=== PATIENT | male | born 1960 | race Caucasian/White ===

== ENCOUNTER 2018-03-29 11:29 | Inpatient (IN) ==
[2018-03-29] MEDS ORDERED: fentaNYL Citrate Inj 100 MCG/2 ML Ampul IV.PUSH ONE ×2 (11:56→13:07)
[2018-03-29 12:09] LABS: Baso # (Auto) 0.1 th/mm3 (0.0-0.2); Baso % (Auto) 0.8 % (0.0-2.0); Eos # (Auto) 0.2 th/mm3 (0.0-0.4); Eos % (Auto) 1.9 % (0.0-4.0); Hematocrit 44.4 % (39.0-51.0); Hemoglobin 15.4 gm/dL (13.0-17.0); Lymph # (Auto) 1.9 th/mm3 (1.0-4.8); Lymph % (Auto) 24.1 % (9.0-44.0); Mean Corpuscular HGB Conc 34.8 % (32.0-36.0); Mean Corpuscular Hemoglobin 30.8 pg (27.0-34.0); Mean Corpuscular Volume 88.6 fL (80.0-100.0); Mean Platelet Volume 7.5 fL (7.0-11.0); Mono # (Auto) 0.5 th/mm3 (0.0-0.9); Mono % (Auto) 6.9 % (0.0-8.0); Neut # (Auto) 5.3 th/mm3 (1.8-7.7); Neut % (Auto) 66.3 % (16.0-70.0); Platelet Count 215 th/mm3 (150-450); Red Blood Count 5.01 mil/mm3 (4.50-5.90)
[2018-03-29 12:18] LABS: Activated Partial Thrombo Time 24.3 sec (24.3-30.1); Prothrombin Time 10.2 sec (9.8-11.6)
--- NOTE | 2018-03-29 12:56 | ED ---
HPI General Chief Complaint: Fall Stated Complaint: Fall Time Seen by Provider: 03/29/18 11:42 Source: patient, EMS and other Mode of arrival: EMS Limitations: language barrier History of Present Illness HPI Narrative: Patient is a previously healthy 57-year-old male who presents with complaint of headache and neck pain. He was on a ladder approximately 6 feet up when he slipped and fell backwards striking his head and neck. He denies pain elsewhere. He did have positive LOC. No vomiting since then. He denies any numbness nor weakness. He denies symptoms prior to the fall. He is not on blood thinners. Patient's friend acted as branding machine tender for much of the interaction that this is what the patient felt comfortable with (vs phone/video) . MD complaint: fall Onset (ago): minute(s) Fall from: from height (distance) Place fall occurred: work Loss of consciousness: yes Prolonged down time: no Symptoms prior to fall: none Context: tripped/slipped Location of injury: head and neck Related Data Home Medications Medication Instructions Recorded Confirmed No Known Home Medications 03/29/18 03/29/18 Allergies Allergy/AdvReac Type Severity Reaction Status Date / Time No Known Allergies Allergy Unverified 03/29/18 11:35 Review of Systems ROS: all other systems reviewed are negative [facility] Social History Social History Substance History: No History of Abuse Second Hand Smoke Exposure: No Smoking Status: Never smoker How Often Do You Have a Drink Containing Alcohol: Monthly or less Recent Travel in [facility] within the Last 8 Weeks: No Recent Out of Country Travel within the Last 8 Weeks: No Immunization History Tetanus Immunization: Unsure Hx Influenza Vaccine This Season: Unable to Assess Exam Narrative Exam Narrative: GENERAL: Well-appearing, stoic male in no acute distress SKIN: Focused skin assessment warm/dry. HEAD: Atraumatic. EYES: Pupils equal and round. No scleral icterus. No injection or drainage. ENT: No nasal bleeding or discharge. Mucous membranes pink and moist. NECK: Trachea midline. No JVD. CARDIOVASCULAR: Regular rate and rhythm. No murmur appreciated. RESPIRATORY: No accessory muscle use. Clear to auscultation. Breath sounds equal bilaterally. GASTROINTESTINAL: Abdomen soft, non-tender, nondistended. Hepatic and splenic margins not palpable. MUSCULOSKELETAL: No obvious deformities. No clubbing. No cyanosis. No edema. No tenderness on palpation during log roll. NEUROLOGICAL: Awake and alert. No obvious cranial nerve deficits. Able to move all 4 extremities. Denies changes in sensation. PSYCHIATRIC: Appropriate mood and affect; insight and judgment normal. Course Consultations Consultation #1: I spoke to Dr Hurt, trauma surgeon ship's electronic warfare officer, whom agreed to admission to the ICU. Time: 12:56 Consultation #2: I spoke to Dr Wagner, neurosurgeon on-call, whom agreed to the patient and asked that we order a CTA of his head. Time: 13:13 Initial Documented Vital Signs Temperature 98.6 F 03/29/18 11:42 Pulse Rate 104 H 03/29/18 11:42 Respiratory Rate 27 H 03/29/18 11:42 Blood Pressure 145/76 H 03/29/18 11:42 Pulse Oximetry 95 03/29/18 11:42 Last Documented Vital Signs Temperature 98.6 F 03/29/18 11:42 Pulse Rate 104 H 03/29/18 11:42 Respiratory Rate 27 H 03/29/18 11:42 Blood Pressure 145/76 H 03/29/18 11:42 Pulse Oximetry 98 03/29/18 12:06 Critical Care Time Critical Care Time: Yes Total Critical Care Time: 35 Attestation: Aggregate critical care time was 35 minutes. Time to perform other separately billable procedures was not included in the critical care time. My time did not include minutes spent treating any other patients simultaneously or on activities that did not directly contribute to the patient's treatment. The services I provided to this patient were to treat and/or prevent clinically significant deterioration that could result in: , disability. I provided critical care services requiring my management, as noted below: Chart data review, documentation time, medication orders and management, vital sign assessments/reviewing monitor data, ordering and reviewing lab tests, ordering and interpreting/reviewing x-rays and diagnostic studies, care of the patient and discussion of the patient with the admitting physicians. Medical Decision Making MDM Narrative Medical decision making narrative: Patient is a 57-year-old male who presents after a fall from a ladder in which he hit his head and neck. He denies pain elsewhere and did not have any pain on palpation during logroll. CT shows intracranial hemorrhage at which time both trauma surgery and neurosurgery were called. Dr. Hurt, trauma surgeon on-call agreed to admission. Medical Screen Exam Complete: Yes Emergency Medical Condition: Yes Differential Diagnosis Differential Diagnosis: Differential diagnosis includes but is not limited to closed head injury, intracranial hemorrhage, fracture. Medical Records Medical records reviewed: Yes I reviewed the patient's medical records. Lab Data Result diagrams: 03/29/18 11:47 03/29/18 11:47 Lab Results 03/29/18 03/29/18 03/29/18 Range/Units 11:47 11:47 11:47 WBC 8.0 (4.0-11.0) th/mm3 RBC 5.01 (4.50-5.90) mil/mm3 Hgb 15.4 (13.0-17.0) gm/dL Hct 44.4 (39.0-51.0) % MCV 88.6 (80.0-100.0) fL MCH 30.8 (27.0-34.0) pg MCHC 34.8 (32.0-36.0) % RDW 13.0 (11.6-17.2) % Plt Count 215 (150-450) th/mm3 MPV 7.5 (7.0-11.0) fL Neut % (Auto) 66.3 (16.0-70.0) % Lymph % (Auto) 24.1 (9.0-44.0) % Coles % (Auto) 6.9 (0.0-8.0) % Eos % (Auto) 1.9 (0.0-4.0) % Baso % (Auto) 0.8 (0.0-2.0) % Neut # (Auto) 5.3 (1.8-7.7) th/mm3 Lymph # (Auto) 1.9 (1.0-4.8) th/mm3 Coles # (Auto) 0.5 (0.0-0.9) th/mm3 Eos # (Auto) 0.2 (0.0-0.4) th/mm3 Baso # (Auto) 0.1 (0.0-0.2) th/mm3 WBC Differential . Differential Comment Auto diff final PT 10.2 (9.8-11.6) sec INR 1.0 Ratio APTT 24.3 (24.3-30.1) sec Sodium 141 (136-145) meq/L Potassium 3.7 (3.5-5.1) meq/L Chloride 105 (98-107) meq/L Carbon Dioxide 27.2 (21.0-32.0) meq/L Anion Gap 9 (5-15) meq/L BUN 16 (7-18) mg/dL Creatinine 1.04 (0.60-1.30) mg/dL Estimated GFR 74 L (>89) mL/min Random Glucose 126 H (74-106) mg/dL Calcium 8.6 (8.5-10.1) mg/dL Blood Type Blood Type Recheck Antibody Screen 03/29/18 Range/Units 11:47 WBC (4.0-11.0) th/mm3 RBC (4.50-5.90) mil/mm3 Hgb (13.0-17.0) gm/dL Hct (39.0-51.0) % MCV (80.0-100.0) fL MCH (27.0-34.0) pg MCHC (32.0-36.0) % RDW (11.6-17.2) % Plt Count (150-450) th/mm3 MPV (7.0-11.0) fL Neut % (Auto) (16.0-70.0) % Lymph % (Auto) (9.0-44.0) % Coles % (Auto) (0.0-8.0) % Eos % (Auto) (0.0-4.0) % Baso % (Auto) (0.0-2.0) % Neut # (Auto) (1.8-7.7) th/mm3 Lymph # (Auto) (1.0-4.8) th/mm3 Coles # (Auto) (0.0-0.9) th/mm3 Eos # (Auto) (0.0-0.4) th/mm3 Baso # (Auto) (0.0-0.2) th/mm3 WBC Differential Differential Comment PT (9.8-11.6) sec INR Ratio APTT (24.3-30.1) sec Sodium (136-145) meq/L Potassium (3.5-5.1) meq/L Chloride (98-107) meq/L Carbon Dioxide (21.0-32.0) meq/L Anion Gap (5-15) meq/L BUN (7-18) mg/dL Creatinine (0.60-1.30) mg/dL Estimated GFR (>89) mL/min Random Glucose (74-106) mg/dL Calcium (8.5-10.1) mg/dL Blood Type AB Negative Blood Type Recheck Required Antibody Screen Negative Imaging Data Attestation: I personally reviewed and interpreted this imaging study as follows : My impression: Intracranial hemorrhage. Radiologist's impression: Head CT 03/29/18 11:42 CONCLUSION: 1. Extensive intraparenchymal and extra-axial hemorrhage as described in detail above. 2. Nondisplaced skull fracture through the frontal bone. Discharge Plan Discharge Disposition Patient Disposition: 30 Still Patient Discharge Condition Condition: Serious Discharge Details Diagnosis: Intracranial hemorrhage Physicians Team ED Provider: Margot Leger Primary Care Provider: Primary Care Tiffany Sexton Attending Provider: Vincent Hurt Discharge Interventions Interventions: Vital Signs Last Done: 03/29/18 11:42 Status ED Status: Admitted Patient
[2018-03-29 13:07] LABS: Calcium 8.6 mg/dL (8.5-10.1); Carbon Dioxide 27.2 meq/L (21.0-32.0); Potassium 3.7 meq/L (3.5-5.1)
--- NOTE | 2018-03-29 13:10 | CT ---
EXAM DATE: 03/29/2018 1:03 PM EDT AGE/SEX: 57 years / Male INDICATIONS: Fall from ladder CLINICAL DATA: This is the patient's initial encounter. Patient reports that signs and symptoms have been present for 1 day and indicates a pain score of 6/10. MEDICAL/SURGICAL HISTORY: None. None. RADIATION DOSE: 66.35 CTDI (mGy) COMPARISON: No prior exams available for comparison. TECHNIQUE: CT of the head without contrast. Using automated exposure control and adjustment of the mA and/or kV according to patient size, radiation dose was kept as low as reasonably achievable to ob tain optimal diagnostic quality images. DICOM format image data is available electronically for revi ew and comparison. FINDINGS: The examination demonstrates extensive posttraumatic subarachnoid hemorrhage layering along the sylvi an fissure and within the middle cranial fossa. There is intraparenchymal hemorrhage evident within t he orbital frontal portion of the frontal lobes bilaterally. In addition, there is a small area of gee bdural hemorrhage seen along the anterior aspect of the left temporal lobe. This measures 8 mm in thi ckness. The ventricular system is normal in size and configuration. There is no evidence of downward herniati on. Examination of the posterior fossa demonstrates a small amount of hemorrhage pooling in the interpedu ncular fossa and extending down along the anterior aspect of the zachary. Bone windowed images demonstrate a skull fracture extending along the midline this begins along the s agittal suture and extends anteriorly throughout the frontal bone and exits through the frontal sinus . There is extensive soft tissue swelling along the 4 head. CONCLUSION: 1. Extensive intraparenchymal and extra-axial hemorrhage as described in detail above. 2. Nondisplaced skull fracture through the frontal bone. Electronically signed by: Casa Escobar MD 03/29/2018 1:08 PM EDT
--- NOTE | 2018-03-29 13:15 | CT ---
EXAM DATE: 03/29/2018 1:07 PM EDT AGE/SEX: 57 years / Male INDICATIONS: Trauma, fall from ladder. CLINICAL DATA: This is the patient's initial encounter. Patient reports that signs and symptoms have been present for 1 day and indicates a pain score of 10/10. MEDICAL/SURGICAL HISTORY: None. None. RADIATION DOSE: 20.33 CTDI (mGy) COMPARISON: [facility], CTA NECK W CONTRAST W 3D, 03/29/2018. . TECHNIQUE: Contiguous axial images were obtained using helical multirow detector technique. The vol umetric data was post-processed with multiplanar reconstruction in oblique axial, sagittal, and coron al planes. Using automated exposure control and adjustment of the mA and/or kV according to patient s ize, radiation dose was kept as low as reasonably achievable to obtain optimal diagnostic quality jeovany ges. DICOM format image data is available electronically for review and comparison. FINDINGS: Vertebrae: Normal vertebral body height. Alignment: Normal. No subluxation. C2-3: The bony spinal canal is normal in size. No evidence of disc bulge or herniation. The neural foramina are bilaterally patent. C3-4: The bony spinal canal is normal in size. No evidence of disc bulge or herniation. The neural foramina are bilaterally patent. C4-5: The bony spinal canal is normal in size. No evidence of disc bulge or herniation. The neural foramina are bilaterally patent. C5-6: Mild disc space narrowing with mild broad-based disc osteophyte complex. No central canal sten osis. Neural foramina are patent bilaterally. C6-7: Mild disc space narrowing with mild broad-based disc osteophyte complex. No central canal sten osis. Neural foramina are patent bilaterally. C7-T1: The bony spinal canal is normal in size. No evidence of disc bulge or herniation. The neura l foramina are bilaterally patent. CONCLUSION: 1. No fracture or dislocation. 2. Mild degenerative disc disease. Electronically signed by: Raoul Sampson MD 03/29/2018 1:13 PM EDT
--- NOTE | 2018-03-29 13:25 | CT ---
EXAM DATE: 03/29/2018 1:20 PM EDT AGE/SEX: 57 years / Male INDICATIONS: Trauma, fall from ladder. CLINICAL DATA: This is the patient's initial encounter. Patient reports that signs and symptoms have been present for 1 day and indicates a pain score of 9/10. MEDICAL/SURGICAL HISTORY: None. None. RADIATION DOSE: 10.66 CTDI (mGy) COMPARISON: [facility] [place], CT CERVICAL SPINE W/O CONTRAST, 03/29/2018. . TECHNIQUE: Volumetric scanning was performed using a multirow detector CT scanner during bolus infus ion of 71 ml Omnipaque 350 (iohexol) nonionic water-soluble contrast as a single exam dose. The da ta was postprocessed with a variety of visualization algorithms including full-volume maximum intensi ty projection, multiplanar sliding thin-slab reformation, curved-planar reformation, and surface-rend ering techniques. Using automated exposure control and adjustment of the mA and/or kV according to p atient size, radiation dose was kept as low as reasonably achievable to obtain optimal diagnostic jessica lity images. DICOM format image data is available electronically for review and comparison. Percent stenosis is calculated using the diameter of the stenotic region over the diameter of the nor mal distal internal carotid artery. FINDINGS: Aortic Arch: Truncus arch anatomy. Widely patent arch vessels. Right Carotid: The common carotid artery is intact. The carotid bulb has a normal configuration wit hout ulceration or narrowing. The internal carotid artery lumen is smooth without stenosis. The ext ernal carotid artery is intact. Left Carotid: The common carotid artery is intact. The carotid bulb has a normal configuration with out ulceration or narrowing. The internal carotid artery lumen is smooth without stenosis. The exte rnal carotid artery is intact. Vertebrals: The vertebral arteries are patent bilaterally, left side dominant.. No stenotic lesions are seen. CONCLUSION: Negative CTA Carotid. Electronically signed by: Emory Trejo MD 03/29/2018 1:24 PM EDT
[2018-03-29] MEDS ORDERED: Morphine Inj 4 MG/ML Vial IV.PUSH ONE (14:10)
--- NOTE | 2018-03-29 14:29 | CT ---
EXAM DATE: 03/29/2018 2:23 PM EDT AGE/SEX: 57 years / Male INDICATIONS: Trauma, fall from ladder. CLINICAL DATA: This is the patient's initial encounter. Patient reports that signs and symptoms have been present for 1 day and indicates a pain score of 6/10. MEDICAL/SURGICAL HISTORY: None. None. RADIATION DOSE: 10.66 CTDI (mGy) ; Combined studies COMPARISON: [facility] [place], CT HEAD W/O CONTRAST, 03/29/2018. . TECHNIQUE: Volumetric scanning was performed using a multi-row detector CT scanner during bolus infu chloe of 75 ml Omnipaque 350 (iohexol) nonionic water-soluble contrast as a cumulative dose for multi ple exams. The data was post processed with a variety of visualization algorithms including full vo lume maximum intensity projection, multi-planar sliding thin slab reformation, curved planar reformat ion, and surface rendering techniques. Using automated exposure control and adjustment of the mA and /or kV according to patient size, radiation dose was kept as low as reasonably achievable to obtain o ptimal diagnostic quality images. DICOM format image data is available electronically for review and comparison. FINDINGS: The study was generated retrospectively from the patient's CTA Carotid exam. The [place] ves sels are well seen proximally. The distal territories are not fully covered. The [place] vessels are intact and unremarkable with no evidence of major vessel occlusion o r stenosis and no evidence of aneurysm. No findings to suggest vascular malformation. There is hemorr ana again noted in the frontal and left temporal regions as well as in the paramesencephalic cistern s. CONCLUSION: No acute [place] vascular abnormalities. Electronically signed by: Emory Trejo MD 03/29/2018 2:28 PM EDT
[2018-03-29] MEDS ORDERED: Naloxone Inj 0.4 MG/ML Vial IV.PUSH PRN (16:11)
[2018-03-29] MEDS ORDERED: Post-op Orders (for Pharmacy) OTHER ONE (16:11)
[2018-03-29] MEDS ORDERED: Bisacodyl 10 MG Supp RECTAL PRN (16:11)
--- NOTE | 2018-03-29 16:54 | MH ---
cc: Vincent Hurt MD DATE OF ADMISSION: 03/29/2018 ADMITTING DIAGNOSES: Intracranial hemorrhage, fall. HISTORY OF PRESENT ILLNESS: This is a 57-year-old male who fell of a 6 feet ladder backwards, hit the head. He lost consciousness for a short period of time, apparently did not have any problems since. He denies numbness, weakness or any other symptoms other than headache. He remembers the accident. PAST MEDICAL HISTORY: Negative. PAST SURGICAL HISTORY: Negative. MEDICATIONS: None. ALLERGIES: NONE. SOCIAL HISTORY: The patient never smoked and drinks socially. PHYSICAL EXAMINATION: GENERAL: Reveals a 57-year-old male. HEENT: Normocephalic. No episodic trauma to the head noted, some bruising over the right forehead, the right parietal area. Pupils are equal and reactive. Extraocular muscles intact. No hemotympanum. No ortega sign and no raccoon's eyes. NECK: Bilateral carotid pulses. No bruits. No trauma to the neck. CHEST: Bilateral breath sounds. HEART: Regular rate and rhythm, hemodynamically stable. No signs of trauma to the chest. ABDOMEN: Soft. Good bowel sounds. No signs of trauma to the abdomen. EXTREMITIES: Bilateral femoral, popliteal, dorsalis pedis and posterior tibial pulses, bilateral brachial, ulnar, radial pulses. Some bruising noted over the right elbow. PROTOCOL RESUSCITATION; The patient was brought at the regular ER underwent radiation and was noted on CT scan to have the above noted findings. Neurologically the patient is fully intact. He is awake, alert and oriented. Cranial nerves 2-12 are normal. Motor is fully intact and sensory is intact. WORKUP: Reveals a right frontal skull fracture and bilateral frontal and right temporoparietal intraparenchymal bleed and small subarachnoid and subdural bleed on the left. This is fairly extensive on the CT scan and patient is way more alert and oriented than the CT scan would indicate. At this point the patient will be admitted to the ICU per clinical indices. CRITICAL CARE TIME: 38 minutes. MD RODRÍGUEZ Truong/gui/liyah , 04:11 PM , 04:19 PM
[2018-03-29] MEDS: Sod Chloride 0.9% Inj 1,000 ML IV.CONT SCH (16:59)
--- NOTE | 2018-03-29 17:45 | P.CONNS ---
History of Present Illness Service: Neurosurgery Consult date: 03/29/18 Requesting Physician: Vincent Hurt (Trauma surgery) Reason for Consult: Traumatic brain injury Primary Care Provider: No Primary Care Physician History of Present Illness: 57-year-old [place] gentleman who was working and fell off a ladder about 6 feet in height and struck his head in the occipital area with positive loss of consciousness after the fall. Is brought to [facility] emergency room and workup undertaken including CT scan of the head which reveals frontal nondisplaced skull fracture along with the bifrontal contusions in left temporal lobe hemorrhage with a small subdural hemorrhage and subarachnoid hemorrhage in the left the sylvian fissure extending into the ambient cistern and pre-pontine area. CT angiogram of the brain does not reveal any underlying cerebral aneurysm spine does not reveal any fracture. Main complaint is headache with some nausea but denies any other symptoms. Review of Systems Constitutional: Denies anorexia, Denies body ache(s), Denies chills, Denies daytime sleepiness, Denies excessive sweating, Denies fatigue, Denies fever(s), Denies headache(s), Denies increased appetite, Denies lack of energy, Denies malaise, Denies night sweats, Denies weakness, Denies weight gain, Denies weight loss, Denies other Eyes: Denies blind spots, Denies blurry vision, Denies bulging eyes, Denies change in vision, Denies double vision, Denies discharge, Denies dry eyes, Denies floaters, Denies irritation, Denies itchy eyes, Denies loss of vision, Denies pain, Denies requires corrective lenses, Denies sensitivity to light, Denies other Ears, Nose, Mouth, and Throat: Denies abnormal hearing, Denies bleeding gums, Denies bad breath, Denies change in voice, Denies dental pain, Denies difficulty swallowing, Denies dizziness, Denies dry mouth, Denies ear discharge , Denies ear pain, Denies facial pain, Denies headache(s), Denies hearing loss, Denies hoarseness, Denies lip swelling, Denies nosebleed, Denies mouth lesions, Denies mouth pain, Denies nasal congestion, Denies nasal discharge, Denies nasal obstruction, Denies nasal trauma, Denies neck lump, Denies neck pain, Denies nose pain, Denies pain with swallowing, Denies poor balance, Denies post nasal drip, Denies ringing in the ears, Denies sinus pain, Denies sinus pressure , Denies sore throat, Denies throat swelling, Denies tongue swelling, Denies other Cardiovascular: Denies chest pain, Denies chest pain at rest, Denies chest pain with activity, Denies excessive sweating, Denies fainting, Denies fast heart rate, Denies foot swelling, Denies generalized swelling, Denies irregular heart rhythm, Denies leg pain with activity, Denies leg sores, Denies leg swelling, Denies lightheadedness, Denies radiating jaw, neck or arm pain, Denies rapid, pounding, or irregular heartbeat, Denies shortness of breath, Denies shortness of breath with activity, Denies shortness of breath when lying down, Denies shortness of breath causing sudden awakening, Denies slow heart rate, Denies other Respiratory: Denies change in phlegm color, Denies chest congestion, Denies cough, Denies coughing up blood, Denies excessive phlegm production, Denies pain on inspiration, Denies pain with cough, Denies shortness of breath, Denies shortness of breath with activity, Denies snoring, Denies stridor, Denies wheezing, Denies other Gastrointestinal: Reports nausea, Denies abdominal pain, Denies belching, Denies black, tarry stools, Denies bloating, Denies bright, red blood in stools , Denies change in bowel habits, Denies constant urge to pass stool, Denies change in stools, Denies coffee ground vomit, Denies constipation, Denies cramping, Denies difficulty swallowing, Denies excessive passing of gas, Denies feeling full early, Denies heartburn, Denies incontinent of stools, Denies loose stools, Denies pain with swallowing, Denies vomiting, Denies vomiting blood, Denies other Genitourinary: Denies blood in semen, Denies blood in urine, Denies decreased urination, Denies difficulty urinating, Denies difficulty with ejaculations, Denies erectile dysfunction, Denies genital lesions, Denies genital pain, Denies painful urination, Denies side pain, Denies frequent nighttime urination , Denies painful ejaculations, Denies penile discharge, Denies scrotal swelling , Denies testicle lump, Denies testicle pain, Denies urinary frequency, Denies urinary hesitancy, Denies urinary incontinence, Denies urinary urgency, Denies other Skin/Breast: Denies acne, Denies bleeding lesions, Denies boil, Denies breast swelling, Denies breast skin changes, Denies breast pain, Denies breast lump, Denies change in breast shape, Denies change in hair, Denies change in skin color, Denies changing lesions, Denies dry skin, Denies excessive hair growth, Denies hair loss, Denies itching, Denies lesions, Denies nail changes, Denies new lesions, Denies nipple discharge, Denies non-healing lesions, Denies redness , Denies sensitivity to light, Denies rash, Denies skin pain, Denies skin ulcer , Denies sores, Denies stretch gross, Denies unusual bruising, Denies wounds, Denies yellowing of the skin, Denies other Neurologic: Reports headache(s), Denies abnormal hearing, Denies abnormal movements, Denies abnormal speech, Denies abnormal walking, Denies behavioral changes, Denies burning sensations, Denies confusion, Denies dizziness, Denies fainting, Denies frequent falls, Denies lack of coordination, Denies localized weakness, Denies loss of vision, Denies memory loss, Denies numbness, Denies other visual disturbances, Denies radiating pain, Denies restless legs, Denies convulsions, Denies seizure-like activity, Denies sensory deficit, Denies tingling, Denies tingling/numbness/burning sensations, Denies tremor(s), Denies unsteadiness, Denies weakness, Denies other Psychiatric: Denies abnormal sleep pattern, Denies anxiety, Denies behavioral changes, Denies change in appetite, Denies change in sex drive, Denies confusion , Denies depression, Denies difficulty concentrating, Denies hearing things others do not hear, Denies hopelessness, Denies irritability, Denies lack of enjoyment, Denies memory loss, Denies mood swings, Denies panic attacks, Denies paranoia, Denies seeing things others do not see, Denies sensing things others do not sense, Denies tactile hallucinations, Denies thoughts of hurting/killing others, Denies thoughts of hurting/killing yourself, Denies other Endocrine: Denies cold intolerance, Denies excessive sweating, Denies flushing, Denies heat intolerance, Denies increased hunger, Denies increased thirst, Denies increased urination, Denies rapid, pounding, or irregular heartbeat, Denies other Hematologic/Lymphatic: Denies easy bleeding, Denies easy bruising, Denies enlarged lymph nodes, Denies other Allergic/Immunologic: Denies GI upset with certain foods, Denies hives, Denies itchy eyes, Denies lip swelling, Denies seasonal runny nose, Denies throat swelling, Denies tongue swelling, Denies wheezing, Denies other PMFSH - History History Provided By: Family Member, Significant Other - Tobacco History Second Hand Smoke Exposure: No Tobacco Use In Past 30 Days: No Smoking Status: Former smoker Tobacco Type: Cigarettes - Alcohol History How Often Do You Have a Drink Containing Alcohol: Monthly or less - Substance Use History Substance History: No History of Abuse - Travel History Recent Travel in the [facility] Within the Last 8 Weeks: No Recent Travel Out of the Country Within the Last 8 Weeks: No - Immunization History Tetanus Immunization: <5 Years Hx Influenza Vaccine This Season: No Medications and Allergies Active Medications: Active Medications Al Hydroxide/Mg Hydroxide (Milk Of Magnesia Liq) 30 ml PO Q12H PRN PRN Reason: Mild Constipation Bisacodyl (Dulcolax Supp) 10 mg RECTAL DAILY PRN PRN Reason: SEVERE CONSITIPATION Sodium Chloride (Ns Inj) 1,000 mls @ 100 mls/hr IV.CONT .Q10H [facility] Last Admin: 03/29/18 16:59 Dose: 100 mls/hr Levetiracetam 500 mg/ Sodium (Chloride) 105 mls @ 400 mls/hr IV.SIG Q12H [facility] Last Admin: 03/29/18 16:57 Dose: 400 mls/hr Lactulose (Lactulose Liq) 30 ml PO DAILY PRN PRN Reason: SEVERE CONSITIPATION Morphine Sulfate (Morphine Inj) 4 mg IV.PUSH Q3H PRN PRN Reason: PAIN 6-10;IF UNABLE TO TAKE PO Naloxone HCl (Narcan Inj) 0.4 mg IV.PUSH UNSCH PRN PRN Reason: SEE LABEL COMMENTS Ondansetron HCl (Zofran Inj) 4 mg IV.PUSH Q6H PRN PRN Reason: NAUSEA OR VOMITING Oxycodone/Acetaminophen (Percocet 5/325 Mg) 1 tab PO Q6H PRN PRN Reason: PAIN SCALE 3 TO 5 Last Admin: 03/29/18 16:58 Dose: 1 tab Pantoprazole Sodium (Protonix) 40 mg PO DAILY [facility] Last Admin: 03/29/18 16:58 Dose: 40 mg Senna/Docusate Sodium (Audelia-Colace) 1 tab PO BID [facility] Sennosides (Senokot) 17.2 mg PO Q12H PRN PRN Reason: Moderate Constipation Sodium Chloride (Ns Flush) 2 ml IV.FLUSH PRN PRN PRN Reason: FLUSH AFTER USING IV ACCESS Allergies Allergy/AdvReac Type Severity Reaction Status Date / Time No Known Allergies Allergy Unverified 03/29/18 11:35 Home Medications Medication Instructions Recorded Confirmed Type No Known Home Medications 03/29/18 03/29/18 History Exam Vital signs: Vital Signs 03/29/18 11:42 03/29/18 12:06 03/29/18 14:09 Temperature 98.6 F Pulse Rate 104 H 112 H Respiratory Rate 27 H 24 Blood Pressure 145/76 H 123/73 Pulse Oximetry 95 98 98 Intake & Output 03/28/18 03/29/18 03/29/18 18:59 06:59 18:59 Intake Total 1000 / 1000 Balance 1000 / 1000 Weight 81.647 kg Intake: IV 1000 / 1000 LR 1000 mL Inj 1,000 ML @ 1000 1000 / 1000 mls/hr IV.CONT .Q1H [facility] Rx#: [id number] - Constitutional no acute distress - Routine HEENT Exam Head: Present: normocephalic, abrasion Eye: Present: EOMI, PERRL ENT: Present: mucous membranes moist, oropharynx clear, nares patent, external ear normal - Routine Neck Exam Present: supple, full ROM - Routine Respiratory Exam Present: CTA bilaterally - Routine Cardiovascular Exam Present: RRR, S1, S2 - Routine Abdominal Exam Present: soft, normoactive bowel sounds - Routine Extremities Exam Present: full ROM, pulses intact - Routine Skin Exam Present: intact - Routine Neurological Exam Present: oriented X3, CN II-XII intact, moving all extremities, normal speech ( Speaks [place] but daughter at bedside translates) Results - Laboratory Findings CBC and BMP: 03/29/18 11:47 03/29/18 11:47 Abnormal lab findings: Abnormal Labs 03/29/18 11:47 Estimated GFR 74 L Random Glucose 126 H - Diagnostic Findings Additional findings: Impressions Cervical Spine CT 03/29/18 11:42 CONCLUSION: 1. No fracture or dislocation. 2. Mild degenerative disc disease. Head CT 03/29/18 11:42 CONCLUSION: 1. Extensive intraparenchymal and extra-axial hemorrhage as described in detail above. 2. Nondisplaced skull fracture through the frontal bone. Neck CTA 03/29/18 11:42 CONCLUSION: Negative CTA Carotid. Head CTA 03/29/18 13:11 CONCLUSION: No acute [place] vascular abnormalities. Assessment and Plan - Assessment (1) Traumatic brain injury with brief (less than 1 hour) loss of consciousness Code(s): S06.9X9A - Unspecified intracranial injury with loss of consciousness of unspecified duration, initial encounter Status: Acute (2) Intracranial hemorrhage Code(s): I62.9 - Nontraumatic intracranial hemorrhage, unspecified Status: Acute - Plan 57-year-old gentleman with a traumatic brain injury involving bifrontal lobe contusions in left temporal lobe hemorrhage along with subarachnoid hemorrhage and frontal nondisplaced skull fracture after a fall from a ladder. Monitor closely in the surgical intensive care unit. Keep head of bed elevated 30. Early seizure prophylaxis with Keppra. Gastrointestinal stress ulcer and mechanical DVT prophylaxis. Follow-up CT scan of the head tomorrow morning to rule out any progression of the intracranial hemorrhage. Discussed with family and all of their questions answered. Discussed with nursing staff.
[2018-03-29] MEDS: Morphine Inj 4 MG/ML Vial IV.PUSH PRN (20:04)
--- NOTE | 2018-03-29 21:51 | P.PNCC ---
Subjective Brief History: 57-year-old male who fell about 6 foot ladder and landed on his back hit his head. There was loss of consciousness and by the time EMS came patient was awake and alert complaining about headache. The patient was brought at the regular ER underwent workup and was noted on CT scan to have the above noted findings. Neurologically the patient is fully intact. He is awake, alert and oriented. Cranial nerves 2-12 are normal. Motor is fully intact and sensory is intact. Reveals a right frontal skull fracture and very extensive bilateral frontal and right temporoparietal intraparenchymal bleeding and subarachnoid and subdural bleed on the left. This is fairly extensive on the CT scan and patient is way more alert and oriented than the CT scan would indicate. At this point the patient will be admitted to the ICU per clinical indices. I have discussed the care with family and also spoken to family member who is a neurosurgeon in [place] and worked also in [facility] who completely understood the situation. This patient will likely get worse before he gets better and there is significant chance that swelling will increase to the point that patients neurologic status will deteriorate and he will require ventilation Objective Vital Signs / I&O: Vital Signs 03/29/18 11:42 03/29/18 12:06 03/29/18 14:09 Temperature 98.6 F Pulse Rate 104 H 112 H Respiratory Rate 27 H 24 Blood Pressure 145/76 H 123/73 Pulse Oximetry 95 98 98 03/29/18 16:00 03/29/18 20:00 03/29/18 20:06 Temperature 97.8 F 98.7 F Pulse Rate 103 H 102 H Respiratory Rate 21 17 17 Blood Pressure 123/69 124/67 Pulse Oximetry 92 L 99 Intake & Output 03/29/18 03/29/18 03/30/18 06:59 18:59 06:59 Intake Total 1120 / 1120 105 / 105 Output Total 750 / 750 Balance 370 / 370 105 / 105 Weight 81.647 kg Intake: IV 1000 / 1000 105 / 105 LR 1000 mL Inj 1,000 ML @ 1000 1000 / 1000 mls/hr IV.CONT .Q1H [facility] Rx#: [id number] Keppra Inj 500 MG In NS Inj 100 105 / 105 ML @ 400 mls/hr IV.SIG Q12H [facility] Rx#:[id number] Oral 120 / 120 Output: Urine 750 / 750 Result Diagrams: 03/29/18 11:47 03/29/18 11:47 Imaging: Impressions Cervical Spine CT 03/29/18 11:42 CONCLUSION: 1. No fracture or dislocation. 2. Mild degenerative disc disease. Head CT 03/29/18 11:42 CONCLUSION: 1. Extensive intraparenchymal and extra-axial hemorrhage as described in detail above. 2. Nondisplaced skull fracture through the frontal bone. Neck CTA 03/29/18 11:42 CONCLUSION: Negative CTA Carotid. Head CTA 03/29/18 13:11 CONCLUSION: No acute [place] vascular abnormalities. Disinhibition Score: 14.00 Aggression Score: 14.00 Lability Score: 14.00 Agitated Behavior Total Score: 14
[2018-03-29] MEDS: Senna/Docusate Sodium 8.6/50 MG Tablet PO SCH (23:05)
[2018-03-30] MEDS: Sod Chloride 0.9% Inj 1,000 ML IV.CONT SCH ×2 (03:18→13:34)
[2018-03-30] MEDS: Morphine Inj 4 MG/ML Vial IV.PUSH PRN ×2 (03:19→21:36)
--- NOTE | 2018-03-30 05:10 | CT ---
EXAM DATE: 03/30/2018 4:22 AM EDT AGE/SEX: 57 years / Male INDICATIONS: Trauma; fall off ladder one day ago. CLINICAL DATA: This is the patient's initial encounter. Patient reports that signs and symptoms have been present for 1 day and indicates a pain score of Nonresponsive. MEDICAL/SURGICAL HISTORY: None. None. RADIATION DOSE: 56.35 CTDI (mGy) COMPARISON: [facility] [place], CT HEAD W/O CONTRAST, 03/29/2018. . TECHNIQUE: CT of the head without contrast. Using automated exposure control and adjustment of the mA and/or kV according to patient size, radiation dose was kept as low as reasonably achievable to ob tain optimal diagnostic quality images. DICOM format image data is available electronically for revi ew and comparison. FINDINGS: Redemonstration of extensive subarachnoid hemorrhage in the frontal mid to high convexities and left middle cranial fossa. Interval evolution of bilateral frontal lobe intraparenchymal hemorrhage. Stabl e 9 mm subdural hematoma in the left anterior temporal lobe. Blood products extend posteriorly to the interpedicular fossa and extending anterior to the zachary. Ventricles are midline and stable in size w ithout evidence for intraventricular hemorrhage. Basilar cisterns are intact. Brainstem and cerebellu m are intact. Redemonstration of anterior midline frontal skull fracture and soft tissue hematoma alessia ng the vertex. CONCLUSION: 1. Evolving extensive subarachnoid hemorrhage, bifrontal intraparenchymal hemorrhage and left tempor al subdural hemorrhage as described above. 2. No hydrocephalus or midline shift. 3. Redemonstration of nondisplaced skull fracture. . Electronically signed by: Gatito Goodman MD 03/30/2018 5:09 AM EDT
[2018-03-30 05:23] LABS: Baso % (Auto) 0.1 % (0.0-2.0); Hematocrit 39.4 % (39.0-51.0); Hemoglobin 13.8 gm/dL (13.0-17.0); Lymph # (Auto) 0.9 th/mm3 (1.0-4.8); Lymph % (Auto) 7.2 % (9.0-44.0); Mean Corpuscular HGB Conc 34.9 % (32.0-36.0); Mean Corpuscular Hemoglobin 30.9 pg (27.0-34.0); Mean Corpuscular Volume 88.4 fL (80.0-100.0); Mean Platelet Volume 7.5 fL (7.0-11.0); Mono # (Auto) 0.9 th/mm3 (0.0-0.9); Mono % (Auto) 7.4 % (0.0-8.0); Neut # (Auto) 10.6 th/mm3 (1.8-7.7); Neut % (Auto) 85.3 % (16.0-70.0); Platelet Count 186 th/mm3 (150-450); Red Blood Count 4.46 mil/mm3 (4.50-5.90); White Blood Count 12.4 th/mm3 (4.0-11.0)
[2018-03-30 05:45] LABS: Anion Gap 8 meq/L (5-15); Blood Urea Nitrogen 10 mg/dL (7-18); Calcium 8.2 mg/dL (8.5-10.1); Carbon Dioxide 24.9 meq/L (21.0-32.0); Chloride 105 meq/L (98-107); Glomerular Filtration Rate Greater Than 89 mL/min (>89); Glucose,Random 109 mg/dL (74-106); Potassium 3.7 meq/L (3.5-5.1); Sodium 138 meq/L (136-145)
--- NOTE | 2018-03-30 08:23 | P.NPEVAL ---
Patient History - Record/History Review Reason for Referral: The patient is a 57 year old unkown handed male status post traumatic brain injury secondary to a fall on 03/29/2018. Patient fell from a ladder with positive LOC. Head CT showed right frontal skull fracture and bilateral frontal and right temporoparietal intraparenchymal bleed with SAH and SDH on the left. Please note that this patient speaks [place], and communication is assisted by daughter who is bilingual. He is referred for baseline neurobehavioral status examination per trauma protocol to assess cognitive, behavioral and emotional aspects of the injury and to provide treatment recommendations. PMF - History History Provided By: Family Member, Significant Other - Medical History Medical History: Medical History (Last Updated 03/29/18 @ 18:40 by Jordyn Lunsford RN) Patient denies medical problems - Surgical History Surgical History: Surgical History (Last Updated 03/29/18 @ 18:40 by Jordyn Lunsford RN) No history of previous surgery - Tobacco History Second Hand Smoke Exposure: No Tobacco Use In Past 30 Days: No Smoking Status: Former smoker Tobacco Type: Cigarettes - Alcohol History How Often Do You Have a Drink Containing Alcohol: Monthly or less - Substance Use History Substance History: No History of Abuse - Travel History Recent Travel in the [place] Within the Last 8 Weeks: No Recent Travel Out of the Country Within the Last 8 Weeks: No - Immunization History Tetanus Immunization: <5 Years Hx Influenza Vaccine This Season: No Medications Active Medications Al Hydroxide/Mg Hydroxide (Milk Of Magnesia Liq) 30 ml PO Q12H PRN PRN Reason: Mild Constipation Bisacodyl (Dulcolax Supp) 10 mg RECTAL DAILY PRN PRN Reason: SEVERE CONSITIPATION Sodium Chloride (Ns Inj) 1,000 mls @ 100 mls/hr IV.CONT .Q10H [facility] Last Admin: 03/30/18 03:18 Dose: 100 mls/hr Levetiracetam 500 mg/ Sodium (Chloride) 105 mls @ 400 mls/hr IV.SIG Q12H [facility] Last Admin: 03/30/18 04:32 Dose: 400 mls/hr Lactulose (Lactulose Liq) 30 ml PO DAILY PRN PRN Reason: SEVERE CONSITIPATION Morphine Sulfate (Morphine Inj) 4 mg IV.PUSH Q3H PRN PRN Reason: PAIN 6-10;IF UNABLE TO TAKE PO Last Admin: 03/30/18 03:19 Dose: 4 mg Naloxone HCl (Narcan Inj) 0.4 mg IV.PUSH UNSCH PRN PRN Reason: SEE LABEL COMMENTS Ondansetron HCl (Zofran Inj) 4 mg IV.PUSH Q6H PRN PRN Reason: NAUSEA OR VOMITING Last Admin: 03/30/18 03:19 Dose: 4 mg Oxycodone/Acetaminophen (Percocet 5/325 Mg) 1 tab PO Q6H PRN PRN Reason: PAIN SCALE 3 TO 5 Last Admin: 03/29/18 16:58 Dose: 1 tab Pantoprazole Sodium (Protonix) 40 mg PO DAILY [facility] Last Admin: 03/29/18 16:58 Dose: 40 mg Senna/Docusate Sodium (Audelia-Colace) 1 tab PO BID [facility] Last Admin: 03/29/18 23:05 Dose: Not Given Sennosides (Senokot) 17.2 mg PO Q12H PRN PRN Reason: Moderate Constipation Sodium Chloride (Ns Flush) 2 ml IV.FLUSH PRN PRN PRN Reason: FLUSH AFTER USING IV ACCESS Mental Status Assessment - Mental Status Orientation: oriented to: Self, Place, Time, Situation Mental Status: Variable: Attention, Learning/memory, Impaired: Thought processing, Language/interactions Absent: Hallucinations, Delusions Adjustment/Coping Assessment - Adjustment/Coping Adjustment/Coping: Severe: Awareness, Insight - Observation In terms of emotional functioning, the patient demonstrated challenges. This patient demonstrated no signs of agitation, impulsivity or disinhibition, nor was there remarkable evidence of a formal thought disorder or psychosis. There was no evidence of depression or anxiety. Thought content was free from suicidal, homicidal or paranoid ideation, and thought processes were bradyphrenic. The patients mood was apathetic, and his affect was flat. The patient appears to possess limited insight and awareness into their situation and within the limits of this brief evaluation, limited judgment. - Goals/Team Members LTG Status: Deferred STG Status: Deferred Team Members: Neuropsychologist Behavior - Behavior Treatment Engagement: Minimal - Observation Behaviorally, the patient demonstrated no signs of agitation, impulsivity or disinhibition. There was no remarkable evidence of a formal thought disorder or psychosis. - Goals LTG Status: Deferred STG Status: Deferred - Team Members Team Members: Neuropsychologist Diagnosis/Discharge Plan - Diagnosis (1) Mild major neurocognitive disorder as late effect of traumatic brain injury without behavioral disturbance Status: Acute Impression: 57 year old male s/p complicated mild TBI 2T fall on 03/29/2018. [place] Level: Level Disinhibition Score: 14.00 Aggression Score: 14.00 Lability Score: 14.00 Agitated Behavior Total Score: 14 Maximizing Acute Care Outcome: It is recommended that the patient be monitored for emergent behavioral impulsivity as the medical condition evolves. This patients neuropathological challenges may limit rehabilitation potential going forward, and these challenges will require specialized therapeutic skills to maximize outcome. Additionally, the patients family is experiencing ongoing issues of adjustment given the traumatic nature of the injury, and they may benefit from ongoing psychological assistance. At this point in the recovery process, the patient does some decision making cognitive capacity as the patient is able to understand a situation and its likely consequences, yet the patient has difficulties in his attempts to manipulate information rationally. Cognitive capacity will be assessed throughout the recovery process. - Discharge Planning Anticipated Problems: Ongoing areas of concern will include behavioral impulsivity, lack of insight and judgment, which is expected to improve with time and treatment. Treatment Plan: This clinician will continue to follow with you throughout the course of this patients critical care treatment, and I will be available to meet with the patients family/support system to facilitate their understanding and the ongoing care of their family member. The goals of neuropsychological intervention shall be both educational and supportive to the family/support system as is deemed clinically appropriate. Thank you for the opportunity to assist in this patients care. Gael Nolen, Ph.D., ABPP Board Certified in Clinical Neuropsychology [place] [employer] [place] Licensed Psychologist #[id number]
[2018-03-30] MEDS: Senna/Docusate Sodium 8.6/50 MG Tablet PO SCH ×2 (09:49→21:36)
[2018-03-30] MEDS: Sodium Chloride 1 GM Tablet PO SCH ×2 (09:52→21:36)
--- NOTE | 2018-03-30 10:15 | P.PNNS ---
Subjective Interval history: Pt awake and alert. Complains of frontal headache and top of his head with nausea. No hemiparesis. Pt ambulating to bathroom with assistance. No paresthesias. <Navdeep Skelton - Last Filed: 03/30/18 10:19> Physical Exam Vital signs: Vital Signs 03/29/18 11:42 03/29/18 12:06 03/29/18 14:09 Temperature 98.6 F Pulse Rate 104 H 112 H Respiratory Rate 27 H 24 Blood Pressure 145/76 H 123/73 Pulse Oximetry 95 98 98 03/29/18 16:00 03/29/18 20:00 03/29/18 20:06 Temperature 97.8 F 98.7 F Pulse Rate 103 H 102 H Respiratory Rate 21 17 17 Blood Pressure 123/69 124/67 Pulse Oximetry 92 L 99 03/30/18 00:00 03/30/18 00:44 03/30/18 03:16 Temperature 99.0 F Pulse Rate 86 Respiratory Rate 15 Blood Pressure 119/67 Pulse Oximetry 99 96 97 03/30/18 03:21 03/30/18 04:00 03/30/18 08:00 Temperature 98.9 F Pulse Rate 71 Respiratory Rate 15 16 Blood Pressure 122/75 Pulse Oximetry 98 97 Intake & Output 03/29/18 03/30/18 03/30/18 18:59 06:59 18:59 Intake Total 1120 / 1120 1225 / 1225 105 / 105 Output Total 750 / 750 750 / 750 Balance 370 / 370 475 / 475 105 / 105 Weight 81.647 kg 81.6 kg Intake: IV 1000 / 1000 1105 / 1105 105 / 105 LR 1000 mL Inj 1,000 ML @ 1000 1000 / 1000 mls/hr IV.CONT .Q1H GRISEL Rx#: [id number] NS Inj 1,000 ML @ 100 mls/hr IV 1000 / 1000 .CONT .Q10H GRISEL Rx#:[id number] Keppra Inj 500 MG In NS Inj 100 105 / 105 105 / 105 ML @ 400 mls/hr IV.SIG Q12H GRISEL Rx#:[id number] Oral 120 / 120 120 / 120 Output: Urine 750 / 750 750 / 750 Other: Weight On Admission 81.2 kg - Constitutional average body habitus, somnolent - Routine HEENT Exam Head: Present: normocephalic, atraumatic Eye: Present: PERRL (Pupils 3mm bilaterally reactive bilaterally.). Absent: conjunctival icterus ENT: Present: oropharynx clear - Routine Neck Exam Present: trachea midline - Routine Respiratory Exam Present: CTA bilaterally. Absent: respiratory distress, rhonchi, wheezes - Routine Cardiovascular Exam Present: RRR, S1, S2. Absent: murmur - Routine Abdominal Exam Present: soft, normoactive bowel sounds. Absent: distended - Routine Skin Exam Absent: cyanosis, erythema - Routine Neurological Exam Present: altered mental status (mild somnolence secondary to headache and nausea.), moving all extremities. Absent: sensory deficit, motor deficit - Detailed Neurological Exam: Coma Scale Eye Opening: Spontaneous Verbal Response: Oriented Motor Response: Obey commands [place] Coma Scale Total: 15 - Routine Psychiatric Exam Present: cooperative. Absent: anxious, agitated <Navdeep Skelton - Last Filed: 03/30/18 10:19> Vital signs: Vital Signs 03/29/18 16:00 03/29/18 20:00 03/29/18 20:06 Temperature 97.8 F 98.7 F Pulse Rate 103 H 102 H Respiratory Rate 21 17 17 Blood Pressure 123/69 124/67 Pulse Oximetry 92 L 99 03/30/18 00:00 03/30/18 00:44 03/30/18 03:16 Temperature 99.0 F Pulse Rate 86 Respiratory Rate 15 Blood Pressure 119/67 Pulse Oximetry 99 96 97 03/30/18 03:21 03/30/18 04:00 03/30/18 08:00 Temperature 98.9 F 99.4 F Pulse Rate 71 77 Respiratory Rate 15 16 17 Blood Pressure 122/75 134/74 Pulse Oximetry 98 95 03/30/18 09:00 03/30/18 10:47 Temperature Pulse Rate 77 Respiratory Rate 24 Blood Pressure Pulse Oximetry Intake & Output 03/29/18 03/30/18 03/30/18 18:59 06:59 18:59 Intake Total 1120 / 1120 1225 / 1225 1205 / 1205 Output Total 750 / 750 750 / 750 Balance 370 / 370 475 / 475 1205 / 1205 Weight 81.647 kg 81.6 kg Intake: IV 1000 / 1000 1105 / 1105 1205 / 1205 LR 1000 mL Inj 1,000 ML @ 1000 1000 / 1000 mls/hr IV.CONT .Q1H GRISEL Rx#: [id number] NS Inj 1,000 ML @ 100 mls/hr IV 1000 / 1000 1000 / 1000 .CONT .Q10H GRISEL Rx#:[id number] Ofirmev Inj 1,000 mg In 100 ml 100 / 100 @ 400 mls/hr IV.SIG Q6H GRISEL Rx# :[id number] Keppra Inj 500 MG In NS Inj 100 105 / 105 105 / 105 ML @ 400 mls/hr IV.SIG Q12H GRISEL Rx#:[id number] Oral 120 / 120 120 / 120 Output: Urine 750 / 750 750 / 750 Other: Date of Last Bowel Movement 03/30/18 Weight On Admission 81.2 kg <Clifton Wagner - Last Filed: 03/30/18 14:50> Assessment and Plan - Assessment (1) Intracranial hemorrhage Code(s): I62.9 - Nontraumatic intracranial hemorrhage, unspecified Status: Acute (2) Traumatic brain injury with brief (less than 1 hour) loss of consciousness Code(s): S06.9X9A - Unspecified intracranial injury with loss of consciousness of unspecified duration, initial encounter Status: Acute - Plan 57-year-old gentleman with a traumatic brain injury involving bifrontal lobe contusions in left temporal lobe hemorrhage along with subarachnoid hemorrhage and frontal nondisplaced skull fracture after a fall from a ladder. Follow up CT will mild blossoming of frontal contusions. P: Continue with neuro checks Continue with anti epileptic medication. Continue to ambulate with assistance. Discussed with family and all of their questions answered. Discussed with nursing staff. <Navdeep Skelton - Last Filed: 03/30/18 10:19> - Assessment (1) Traumatic brain injury with brief (less than 1 hour) loss of consciousness Code(s): S06.9X9A - Unspecified intracranial injury with loss of consciousness of unspecified duration, initial encounter Status: Acute (2) Intracranial hemorrhage Code(s): I62.9 - Nontraumatic intracranial hemorrhage, unspecified Status: Acute - Attending Attestation The exam, history, and the medical decision-making described in the above note were completed with the assistance of the mid-level provider. I reviewed and agree with the findings presented. I attest that I had a [id number] encounter with the patient on the same day, and personally performed and documented my assessment and findings in the medical record. Overall stable follow-up CT scan of the head and neurologic examination. Continue with observation and increase activity status as tolerated. Updated family at bedside and discussed with nursing staff. <Clifton Wagner - Last Filed: 03/30/18 14:50>
--- NOTE | 2018-03-30 12:29 | P.PNCC ---
Subjective Brief History: 57-year-old male who fell about 6 foot ladder and landed on his back hit his head. There was loss of consciousness and by the time EMS came patient was awake and alert complaining about headache. The patient was brought at the regular ER underwent workup and was noted on CT scan to have the above noted findings. Neurologically the patient is fully intact. He is awake, alert and oriented. Cranial nerves 2-12 are normal. Motor is fully intact and sensory is intact. Reveals a right frontal skull fracture and very extensive bilateral frontal and right temporoparietal intraparenchymal bleeding and subarachnoid and subdural bleed on the left. This is fairly extensive on the CT scan and patient is way more alert and oriented than the CT scan would indicate. At this point the patient will be admitted to the ICU per clinical indices. I have discussed the care with family and also spoken to family member who is a neurosurgeon in [place] and worked also in [facility] who completely understood the situation. This patient will likely get worse before he gets better and there is significant chance that swelling will increase to the point that patients neurologic status will deteriorate and he will require ventilation 03/[address] stable c/o nausea and headache overall stable Objective Vital Signs / I&O: Vital Signs 03/29/18 12:06 03/29/18 14:09 03/29/18 16:00 Temperature 97.8 F Pulse Rate 112 H 103 H Respiratory Rate 24 21 Blood Pressure 123/73 123/69 Pulse Oximetry 98 98 92 L 03/29/18 20:00 03/29/18 20:06 03/30/18 00:00 Temperature 98.7 F 99.0 F Pulse Rate 102 H 86 Respiratory Rate 17 17 15 Blood Pressure 124/67 119/67 Pulse Oximetry 99 99 03/30/18 00:44 03/30/18 03:16 03/30/18 03:21 Temperature Pulse Rate Respiratory Rate 15 Blood Pressure Pulse Oximetry 96 97 03/30/18 04:00 03/30/18 08:00 03/30/18 09:00 Temperature 98.9 F 99.4 F Pulse Rate 71 77 77 Respiratory Rate 16 17 Blood Pressure 122/75 134/74 Pulse Oximetry 98 95 03/30/18 10:47 Temperature Pulse Rate Respiratory Rate 24 Blood Pressure Pulse Oximetry Intake & Output 03/29/18 03/30/18 03/30/18 18:59 06:59 18:59 Intake Total 1120 / 1120 1225 / 1225 / Output Total 750 / 750 750 / 750 Balance 370 / 370 475 / 475 205 / 205 Weight 81.647 kg 81.6 kg Intake: IV 1000 / 1000 1105 / 1105 205 / 205 LR 1000 mL Inj 1,000 ML @ 1000 1000 / 1000 mls/hr IV.CONT .Q1H GRISEL Rx#: [id number] NS Inj 1,000 ML @ 100 mls/hr IV 1000 / 1000 .CONT .Q10H GRISEL Rx#:[id number] Ofirmev Inj 1,000 mg In 100 ml 100 / 100 @ 400 mls/hr IV.SIG Q6H GRISEL Rx# :[id number] Keppra Inj 500 MG In NS Inj 100 105 / 105 105 / 105 ML @ 400 mls/hr IV.SIG Q12H GRISEL Rx#:[id number] Oral 120 / 120 120 / 120 Output: Urine 750 / 750 750 / 750 Other: Date of Last Bowel Movement 03/30/18 Weight On Admission 81.2 kg Result Diagrams: 03/30/18 04:50 03/30/18 04:50 Imaging: Impressions Cervical Spine CT 03/29/18 11:42 CONCLUSION: 1. No fracture or dislocation. 2. Mild degenerative disc disease. Head CT 03/29/18 11:42 CONCLUSION: 1. Extensive intraparenchymal and extra-axial hemorrhage as described in detail above. 2. Nondisplaced skull fracture through the frontal bone. Neck CTA 03/29/18 11:42 CONCLUSION: Negative CTA Carotid. Head CTA 03/29/18 13:11 CONCLUSION: No acute [place] vascular abnormalities. Head CT 03/30/18 00:00 CONCLUSION: 1. Evolving extensive subarachnoid hemorrhage, bifrontal intraparenchymal hemorrhage and left temporal subdural hemorrhage as described above. 2. No hydrocephalus or midline shift. 3. Redemonstration of nondisplaced skull fracture. . Disinhibition Score: 14.00 Aggression Score: 14.00 Lability Score: 14.00 Agitated Behavior Total Score: 14 - Exam ROSS FURNACE OPERATOR: GCS 15 Hemodynamic/Cardiac: stable Pulmonary/Respiratory: clear b/l Abdomen/GI Nutrition: soft,benign Assessment and Plan Plan: stable overall repeat CT head in AM keep on clears keep in ICU until AM PT-ambulate family updated at the bedside
[2018-03-31] MEDS: Morphine Inj 4 MG/ML Vial IV.PUSH PRN (03:08)
[2018-03-31] MEDS: Sod Chloride 0.9% Inj 1,000 ML IV.CONT SCH ×3 (03:08→17:52)
[2018-03-31 09:04] LABS: Baso % (Auto) 0.4 % (0.0-2.0); Eos % (Auto) 0.2 % (0.0-4.0); Hematocrit 38.4 % (39.0-51.0); Hemoglobin 13.3 gm/dL (13.0-17.0); Lymph # (Auto) 1.1 th/mm3 (1.0-4.8); Lymph % (Auto) 13.1 % (9.0-44.0); Mean Corpuscular HGB Conc 34.7 % (32.0-36.0); Mean Corpuscular Hemoglobin 30.9 pg (27.0-34.0); Mean Corpuscular Volume 89.1 fL (80.0-100.0); Mean Platelet Volume 7.5 fL (7.0-11.0); Mono # (Auto) 0.6 th/mm3 (0.0-0.9); Mono % (Auto) 7.2 % (0.0-8.0); Neut # (Auto) 6.9 th/mm3 (1.8-7.7); Neut % (Auto) 79.1 % (16.0-70.0); Platelet Count 168 th/mm3 (150-450); Red Blood Count 4.31 mil/mm3 (4.50-5.90); Red Cell Distribution Width 13.2 % (11.6-17.2); White Blood Count 8.7 th/mm3 (4.0-11.0)
[2018-03-31 09:41] LABS: Anion Gap 6 meq/L (5-15); Blood Urea Nitrogen 8 mg/dL (7-18); Calcium 7.9 mg/dL (8.5-10.1); Carbon Dioxide 27.4 meq/L (21.0-32.0); Chloride 109 meq/L (98-107); Glomerular Filtration Rate Greater Than 89 mL/min (>89); Glucose,Random 96 mg/dL (74-106); Potassium 3.8 meq/L (3.5-5.1); Sodium 142 meq/L (136-145)
[2018-03-31] MEDS: Senna/Docusate Sodium 8.6/50 MG Tablet PO SCH ×2 (09:48→20:41)
[2018-03-31] MEDS: Sodium Chloride 1 GM Tablet PO SCH ×2 (09:48→20:41)
--- NOTE | 2018-03-31 11:19 | P.PNNS ---
Subjective Interval history: No events, headache overnight stable. Physical Exam Vital signs: Vital Signs 03/30/18 12:00 03/30/18 16:00 03/30/18 19:00 Temperature 98.7 F 98.4 F Pulse Rate 72 86 Respiratory Rate 17 21 Blood Pressure 130/66 127/75 Pulse Oximetry 95 95 96 03/30/18 20:00 03/30/18 21:38 03/30/18 21:52 Temperature 98.7 F Pulse Rate 60 Respiratory Rate 16 15 22 Blood Pressure Pulse Oximetry 97 03/31/18 00:00 03/31/18 03:10 03/31/18 04:00 Temperature 98.1 F 98.0 F Pulse Rate 58 L Respiratory Rate 17 15 15 Blood Pressure 114/69 132/72 Pulse Oximetry 98 95 03/31/18 04:40 03/31/18 10:37 Temperature Pulse Rate Respiratory Rate 17 Blood Pressure Pulse Oximetry 95 Intake & Output 03/30/18 03/31/18 03/31/18 18:59 06:59 18:59 Intake Total 1690 / 1690 505 / 505 600 / 600 Output Total 850 / 850 Balance 1690 / 1690 -345 / -345 600 / 600 Weight 80.3 kg Intake: IV 1410 / 1410 305 / 305 600 / 600 NS Inj 1,000 ML @ 100 mls/hr IV 1000 / 1000 500 / 500 .CONT .Q10H GRISEL Rx#:[id number] Ofirmev Inj 1,000 mg In 100 ml 200 / 200 200 / 200 100 / 100 @ 400 mls/hr IV.SIG Q6H PRN Rx# :[id number] Keppra Inj 500 MG In NS Inj 100 210 / 210 105 / 105 ML @ 400 mls/hr IV.SIG Q12H GRISEL Rx#:[id number] Oral 280 / 280 200 / 200 Output: Urine 850 / 850 Other: # Voids 6 3 Date of Last Bowel Movement 03/30/18 03/30/18 Narrative: A&O x 3 in [place], some mild word finding difficulty in Greek Full strength UE/LE CN intact Assessment and Plan - Assessment (1) Traumatic brain injury with brief (less than 1 hour) loss of consciousness Code(s): S06.9X9A - Unspecified intracranial injury with loss of consciousness of unspecified duration, initial encounter Status: Acute (2) Intracranial hemorrhage Code(s): I62.9 - Nontraumatic intracranial hemorrhage, unspecified Status: Acute - Plan 57-year-old gentleman with a traumatic brain injury 03/29 involving bifrontal lobe contusions in left temporal lobe hemorrhage along with subarachnoid hemorrhage and frontal nondisplaced skull fracture after a fall from a ladder. Follow up CT 03/30 will mild blossoming of frontal contusions. P: Continue with anti epileptic medication. Keppra for one week. Continue to ambulate with assistance. OK for transfer to floor with stable exam and imaging. Neuro checks to q4 Discussed with family and all of their questions answered. Discussed with nursing staff.
[2018-03-31] MEDS ORDERED: HYDROmorphone PF Inj 2 MG/ML Vial IV.PUSH PRN (12:02)
--- NOTE | 2018-03-31 12:39 | P.PNCC ---
Subjective Brief History: 57-year-old male who fell about 6 foot ladder and landed on his back hit his head. There was loss of consciousness and by the time EMS came patient was awake and alert complaining about headache. The patient was brought at the regular ER underwent workup and was noted on CT scan to have the above noted findings. Neurologically the patient is fully intact. He is awake, alert and oriented. Cranial nerves 2-12 are normal. Motor is fully intact and sensory is intact. Reveals a right frontal skull fracture and very extensive bilateral frontal and right temporoparietal intraparenchymal bleeding and subarachnoid and subdural bleed on the left. This is fairly extensive on the CT scan and patient is way more alert and oriented than the CT scan would indicate. At this point the patient will be admitted to the ICU per clinical indices. I have discussed the care with family and also spoken to family member who is a neurosurgeon in [place] and worked also in [facility] who completely understood the situation. This patient will likely get worse before he gets better and there is significant chance that swelling will increase to the point that patients neurologic status will deteriorate and he will require ventilation 03/[address] stable c/o nausea and headache overall stable 03/31 awake alert [place] Coma Score of 15 Moving all extremities Complains of mainly headache Tolerating regular diet CT essentially stable Patient has been out of bed Objective Vital Signs / I&O: Vital Signs 03/30/18 16:00 03/30/18 19:00 03/30/18 20:00 Temperature 98.4 F 98.7 F Pulse Rate 86 60 Respiratory Rate 21 16 Blood Pressure 127/75 Pulse Oximetry 95 96 97 03/30/18 21:38 03/30/18 21:52 03/31/18 00:00 Temperature 98.1 F Pulse Rate 58 L Respiratory Rate 15 22 17 Blood Pressure 114/69 Pulse Oximetry 98 03/31/18 03:10 03/31/18 04:00 03/31/18 04:40 Temperature 98.0 F Pulse Rate Respiratory Rate 15 15 17 Blood Pressure 132/72 Pulse Oximetry 95 03/31/18 10:37 Temperature Pulse Rate Respiratory Rate Blood Pressure Pulse Oximetry 95 Intake & Output 03/30/18 03/31/18 03/31/18 18:59 06:59 18:59 Intake Total 1690 / 1690 505 / 505 600 / 600 Output Total 850 / 850 Balance 1690 / 1690 -345 / -345 600 / 600 Weight 80.3 kg Intake: IV 1410 / 1410 305 / 305 600 / 600 NS Inj 1,000 ML @ 100 mls/hr IV 1000 / 1000 500 / 500 .CONT .Q10H GRISLE Rx#:[id number] Ofirmev Inj 1,000 mg In 100 ml 200 / 200 200 / 200 100 / 100 @ 400 mls/hr IV.SIG Q6H PRN Rx# :[id number] Keppra Inj 500 MG In NS Inj 100 210 / 210 105 / 105 ML @ 400 mls/hr IV.SIG Q12H GRISEL Rx#:[id number] Oral 280 / 280 200 / 200 Output: Urine 850 / 850 Other: # Voids 6 3 Date of Last Bowel Movement 03/30/18 03/30/18 Result Diagrams: 03/31/18 08:38 03/31/18 08:38 Disinhibition Score: 19.25 Aggression Score: 17.50 Lability Score: 14.00 Agitated Behavior Total Score: 17 - Exam LINING MAKER: GCS 15 Hemodynamic/Cardiac: stable Pulmonary/Respiratory: clear BS Abdomen/GI Nutrition: soft Metabolic/Acid-Base: Na 142 Assessment and Plan Plan: stable overall regular diet keppra OOB
[2018-03-31] MEDS: Enoxaparin Inj 40 MG/0.4 ML Syringe SQ SCH (13:04)
[2018-04-01 04:09] LABS: Hematocrit 39.5 % (39.0-51.0); Hemoglobin 13.7 gm/dL (13.0-17.0); Mean Corpuscular HGB Conc 34.7 % (32.0-36.0); Mean Corpuscular Hemoglobin 30.9 pg (27.0-34.0); Mean Corpuscular Volume 88.8 fL (80.0-100.0); Mean Platelet Volume 7.8 fL (7.0-11.0); Platelet Count 186 th/mm3 (150-450); Red Blood Count 4.45 mil/mm3 (4.50-5.90); Red Cell Distribution Width 12.8 % (11.6-17.2); White Blood Count 10.3 th/mm3 (4.0-11.0)
[2018-04-01 04:37] LABS: Anion Gap 7 meq/L (5-15); Blood Urea Nitrogen 9 mg/dL (7-18); Calcium 7.9 mg/dL (8.5-10.1); Carbon Dioxide 25.7 meq/L (21.0-32.0); Chloride 107 meq/L (98-107); Glomerular Filtration Rate Greater Than 89 mL/min (>89); Glucose,Random 122 mg/dL (74-106); Potassium 3.6 meq/L (3.5-5.1); Sodium 140 meq/L (136-145)
[2018-04-01] MEDS: Sod Chloride 0.9% Inj 1,000 ML IV.CONT SCH ×2 (05:38→16:34)
[2018-04-01] MEDS: Sodium Chloride 1 GM Tablet PO SCH ×2 (08:09→21:14)
[2018-04-01] MEDS: Senna/Docusate Sodium 8.6/50 MG Tablet PO SCH ×2 (08:09→21:14)
[2018-04-01] MEDS: Enoxaparin Inj 40 MG/0.4 ML Syringe SQ SCH (08:09)
[2018-04-01] MEDS ORDERED: Haloperidol Inj 5 MG/ML Ampul IV.PUSH PRN (10:05)
--- NOTE | 2018-04-01 10:39 | CT ---
EXAM DATE: 04/01/2018 10:33 AM EDT AGE/SEX: 57 years / Male INDICATIONS: Trauma, fall onto head three days ago. CLINICAL DATA: This is the patient's initial encounter. Patient reports that signs and symptoms have been present for 3 days and indicates a pain score of 8/10. MEDICAL/SURGICAL HISTORY: . traumatic brain injury None. RADIATION DOSE: 34.81 CTDI (mGy) ; Patient motion COMPARISON: [facility], CT HEAD W/O CONTRAST, 03/30/2018. . TECHNIQUE: CT of the head without contrast. Using automated exposure control and adjustment of the mA and/or kV according to patient size, radiation dose was kept as low as reasonably achievable to ob tain optimal diagnostic quality images. DICOM format image data is available electronically for revi ew and comparison. FINDINGS: The examination again demonstrates subarachnoid hemorrhage small amount of interhemispheric hemorrhag e superiorly, and area of hemorrhagic contusion and edema in the right greater than left inferior fro ntal regions. There is hemorrhage in the left sylvian fissure as before. Slightly decreased prominenc e of the hemorrhage near the vertex. There is a nondisplaced fracture through the frontal calvarium. CONCLUSION: 1. Intracranial hemorrhage and bifrontal hemorrhagic contusions are again seen with a nondisplaced s kull fracture. . Electronically signed by: Eliceo Vilchis MD 04/01/2018 10:38 AM EDT
--- NOTE | 2018-04-01 10:46 | P.PNNS ---
Subjective Interval history: agitated yesterday -received some 1mg Ativan overnight -- still somonlent this AM -- scan showing evolution of bifrontal (R>L) contusions and left temporal -- ativan dc'd and other meds added as prns Physical Exam Vital signs: Vital Signs 03/31/18 12:00 03/31/18 12:58 03/31/18 16:00 Temperature 98.4 F 97.8 F Pulse Rate 60 55 L Respiratory Rate 17 25 H 20 Blood Pressure 123/76 140/76 Pulse Oximetry 95 97 03/31/18 16:24 03/31/18 20:00 04/01/18 00:00 Temperature 98.0 F 98.1 F Pulse Rate 66 69 Respiratory Rate 22 14 16 Blood Pressure 125/74 128/81 Pulse Oximetry 98 98 04/01/18 04:00 04/01/18 05:37 Temperature 98.0 F Pulse Rate 60 Respiratory Rate 14 16 Blood Pressure 132/73 Pulse Oximetry 98 Intake & Output 03/31/18 04/01/18 04/01/18 18:59 06:59 18:59 Intake Total 2255 / 2255 100 / 100 105 / 105 Balance 2255 / 2255 100 / 100 105 / 105 Weight 81.4 kg Intake: IV 1805 / 1805 100 / 100 105 / 105 NS Inj 1,000 ML @ 100 mls/hr IV 1500 / 1500 .CONT .Q10H GRISEL Rx#:[id number] Ofirmev Inj 1,000 mg In 100 ml 200 / 200 100 / 100 @ 400 mls/hr IV.SIG Q6H GRISEL Rx# :[id number] Keppra Inj 500 MG In NS Inj 100 105 / 105 105 / 105 ML @ 400 mls/hr IV.SIG Q12H GRISEL Rx#:[id number] Oral 450 / 450 Other: # Voids 7 3 Date of Last Bowel Movement 03/30/18 03/30/18 Narrative: A&O x 3 in Polish, some mild word finding difficulty in [place] Full strength UE/LE CN intact Assessment and Plan - Assessment (1) Traumatic brain injury with brief (less than 1 hour) loss of consciousness Code(s): S06.9X9A - Unspecified intracranial injury with loss of consciousness of unspecified duration, initial encounter Status: Acute (2) Intracranial hemorrhage Code(s): I62.9 - Nontraumatic intracranial hemorrhage, unspecified Status: Acute - Plan 57-year-old gentleman with a traumatic brain injury 03/29 involving bifrontal lobe contusions in left temporal lobe hemorrhage along with subarachnoid hemorrhage and frontal nondisplaced skull fracture after a fall from a ladder. Follow up CT 03/30 will mild blossoming of frontal contusions. Follow up CT showing evolution, patient more somnolent this AM may be medication related from overnight P: Continue with anti epileptic medication. Keppra for one week. Continue to ambulate with assistance. Neuro checks Hold sedating meds -- CT today ok not concerning showing expected evolution -- agree with Na tabs and saline -- avoid fluid overload Keep in ICU today Discussed with family and all of their questions answered. Discussed with nursing staff.
[2018-04-01] MEDS: HYDROmorphone PF Inj 2 MG/ML Vial IV.PUSH PRN ×3 (12:00→21:13)
--- NOTE | 2018-04-01 12:07 | P.PNCC ---
Subjective Brief History: 57-year-old male who fell about 6 foot ladder and landed on his back hit his head. There was loss of consciousness and by the time EMS came patient was awake and alert complaining about headache. The patient was brought at the regular ER underwent workup and was noted on CT scan to have the above noted findings. Neurologically the patient is fully intact. He is awake, alert and oriented. Cranial nerves 2-12 are normal. Motor is fully intact and sensory is intact. Reveals a right frontal skull fracture and very extensive bilateral frontal and right temporoparietal intraparenchymal bleeding and subarachnoid and subdural bleed on the left. This is fairly extensive on the CT scan and patient is way more alert and oriented than the CT scan would indicate. At this point the patient will be admitted to the ICU per clinical indices. I have discussed the care with family and also spoken to family member who is a neurosurgeon in [place] and worked also in [facility] who completely understood the situation. This patient will likely get worse before he gets better and there is significant chance that swelling will increase to the point that patients neurologic status will deteriorate and he will require ventilation 03/[address] stable c/o nausea and headache overall stable 03/31 awake alert [place] Coma Score of 15 Moving all extremities Complains of mainly headache Tolerating regular diet CT essentially stable Patient has been out of bed 04/01 According to RN report patient was agitated last night and impulsive He received Ativan ordered by the neurosurgeon He is sleepy in the morning however arousable patient is [place]ien-speaking only according to family though he is alert and oriented The CT shows essentially stable injury pattern Sodium was 140 Patient is acting as expected for a frontal lobe injury-we will start him on valproic acid Seroquel for the night Haldol as needed patient is bradycardic so that will hold clonidine or propranolol Family was updated at the bedside Objective Vital Signs / I&O: Vital Signs 03/31/18 12:58 03/31/18 16:00 03/31/18 16:24 Temperature 97.8 F Pulse Rate 55 L Respiratory Rate 25 H 20 22 Blood Pressure 140/76 Pulse Oximetry 97 03/31/18 20:00 04/01/18 00:00 04/01/18 04:00 Temperature 98.0 F 98.1 F 98.0 F Pulse Rate 66 69 60 Respiratory Rate 14 16 14 Blood Pressure 125/74 128/81 132/73 Pulse Oximetry 98 98 98 04/01/18 05:37 Temperature Pulse Rate Respiratory Rate 16 Blood Pressure Pulse Oximetry Intake & Output 03/31/18 04/01/18 04/01/18 18:59 06:59 18:59 Intake Total 2255 / 2255 100 / 100 105 / 105 Balance 2255 / 2255 100 / 100 105 / 105 Weight 81.4 kg Intake: IV 1805 / 1805 100 / 100 105 / 105 NS Inj 1,000 ML @ 100 mls/hr IV 1500 / 1500 .CONT .Q10H GRISEL Rx#:[id number] Ofirmev Inj 1,000 mg In 100 ml 200 / 200 100 / 100 @ 400 mls/hr IV.SIG Q6H GRISEL Rx# :[id number] Keppra Inj 500 MG In NS Inj 100 105 / 105 105 / 105 ML @ 400 mls/hr IV.SIG Q12H GRISEL Rx#:[id number] Oral 450 / 450 Other: # Voids 7 3 Date of Last Bowel Movement 03/30/18 03/30/18 Result Diagrams: 04/01/18 03:32 04/01/18 03:32 Imaging: Impressions Head CT 04/01/18 00:00 CONCLUSION: 1. Intracranial hemorrhage and bifrontal hemorrhagic contusions are again seen with a nondisplaced skull fracture. . Disinhibition Score: 14.00 Aggression Score: 14.00 Lability Score: 14.00 Agitated Behavior Total Score: 14 - Exam SKIDWAY WORKER: [place] Coma Score is 15, patient is sleepy but easily arousable Hemodynamic/Cardiac: Stable sinus bradycardia Pulmonary/Respiratory: Breath sounds clear bilateral Abdomen/GI Nutrition: abdomen is soft benign Renal/I&O: Adequate urine output patient is well hydrated Assessment and Plan Plan: stable overall regular diet keppra OOB Keep in the ICU for another 24 hours patient is very impulsive at times
[2018-04-01] MEDS: QUEtiapine 25 MG Tablet PO SCH (21:14)
[2018-04-02] MEDS: Sod Chloride 0.9% Inj 1,000 ML IV.CONT SCH ×2 (02:21→13:32)
[2018-04-02] MEDS: HYDROmorphone PF Inj 2 MG/ML Vial IV.PUSH PRN (05:27)
--- NOTE | 2018-04-02 08:17 | P.PNNPSY ---
- Progress Notes/Response to Treatment Contents of Sessions: Adjustment, Level of consciousness Time with Patient: 30 minutes Premorbid Psychological Status: Premorbid Cognitive, Emotional and Behavioral Status: Tenuous. The patient has high school years of education but is from [place], and speaks only [place] Citizen. The patient has no known prior psychiatric difficulties, as described above. Substance abuse history is unknown. Behavioral Reactions of Patient and Family/Support System: Stable. The patients family is experiencing ongoing issues of adjustment given the nature of the injury, and this aspect of recovery will require ongoing monitoring. Emotional/Behavioral Status of Patient and Family/Support System: Stable. Pertinent issues, if appropriate to this patients clinical care, are described in detail above. Maximizing Acute Care Outcome: It is recommended that the patient be monitored for emergent behavioral impulsivity as the medical condition evolves. This patients neuropathological challenges may limit rehabilitation potential going forward, and these challenges will require specialized therapeutic skills to maximize outcome. Additionally, the patients family is experiencing ongoing issues of adjustment given the traumatic nature of the injury, and they may benefit from ongoing psychological assistance. At this point in the recovery process, the patient does some decision making cognitive capacity as the patient is able to understand a situation and its likely consequences, and he has improved ability to manipulate information rationally. Cognitive capacity will be assessed throughout the recovery process. Anticipated Problems: Ongoing areas of concern will include behavioral impulsivity, lack of insight and judgment, which is expected to improve with time and treatment. Treatment Plan: This clinician will continue to follow with you throughout the course of this patients critical care treatment, and I will be available to meet with the patients family/support system to facilitate their understanding and the ongoing care of their family member. The goals of neuropsychological intervention shall be both educational and supportive to the family/support system as is deemed clinically appropriate. Rancho Los Amigos COG Scale: Level VII Disinhibition Score: 14.00 Aggression Score: 14.00 Lability Score: 14.00 Agitated Behavior Total Score: 14 Impression: 57 year old male s/p complicated mild TBI 2T fall on 03/29/2018. Progress Note Narrative: PTD 4. The patient has been agitation/restless over the weekend. Trauma team started VPA 250 BID and Seroquel 50 HS with a Haldol PRN (not needed). His agitation has become manageable with this combination, with ABS of 14 (14,14,14) . He is Rancho VII, with headache, and he has expected clinical presentation with the bifrontal injuries he sustained. I will follow. If he discharges, I will be happy to see him as an outpatient for follow-up. - Diagnosis (1) Mild major neurocognitive disorder as late effect of traumatic brain injury without behavioral disturbance Status: Acute
--- NOTE | 2018-04-02 08:20 | P.DCO ---
- Physical Therapy Order: Evaluate and treat, Improve ambulation, Strength and gait training - Home Health Nursing Order: Nursing assessment with vital signs - Certification I have seen patient Nitish Hutchinson on 04/02/18. My clinical findings support the need for the requested home health care services because: Deconditioned with increased weakness I certify that my clinical findings support that this patient is homebound because: Impaired cognitive ability/safety
[2018-04-02] MEDS: Sodium Chloride 1 GM Tablet PO SCH ×2 (09:24→20:22)
[2018-04-02] MEDS: Senna/Docusate Sodium 8.6/50 MG Tablet PO SCH ×2 (09:24→20:23)
[2018-04-02] MEDS: Enoxaparin Inj 40 MG/0.4 ML Syringe SQ SCH (09:24)
--- NOTE | 2018-04-02 11:05 | P.PNNS ---
Subjective Interval history: Pt awakens to voce. Complains of headache frontal and top of his head. No n/v. He complains of muscular pain in buttocks and posterior hamstring bilaterally no radiating pain. No paresthesias in face or extremities. <NafisaNavdeep - Last Filed: 04/02/18 11:21> Physical Exam Vital signs: Vital Signs 04/01/18 12:00 04/01/18 16:00 04/01/18 19:42 Temperature 98 F 98.8 F Pulse Rate 48 L 69 Respiratory Rate 12 22 Blood Pressure 137/80 143/80 H Pulse Oximetry 97 97 99 04/01/18 20:00 04/02/18 00:00 04/02/18 04:00 Temperature 98.7 F 98.7 F 98.8 F Pulse Rate 43 L 44 L 61 Respiratory Rate 21 12 20 Blood Pressure 150/77 H 136/69 Pulse Oximetry 96 98 100 04/02/18 08:00 04/02/18 08:52 04/02/18 09:00 Temperature 98.7 F Pulse Rate 50 L 50 L Respiratory Rate 16 Blood Pressure 147/84 H Pulse Oximetry 99 99 Intake & Output 04/01/18 04/02/18 04/02/18 18:59 06:59 18:59 Intake Total 490 / 490 105 / 105 Balance 490 / 490 105 / 105 Intake: IV 310 / 310 105 / 105 Ofirmev Inj 1,000 mg In 100 ml 100 / 100 @ 400 mls/hr IV.SIG Q6H PRN Rx# :[id number] Keppra Inj 500 MG In NS Inj 100 210 / 210 105 / 105 ML @ 400 mls/hr IV.SIG Q12H GRISEL Rx#:[id number] Oral 180 / 180 Other: # Voids 7 Date of Last Bowel Movement 03/30/18 03/30/18 03/30/18 - Constitutional mild distress (Related to headache.), cooperative - Routine HEENT Exam Head: Present: normocephalic, atraumatic Eye: Present: PERRL (Pupils 4mm bilterally reactive bilaterally.). Absent: conjunctival icterus ENT: Present: oropharynx clear - Routine Respiratory Exam Present: CTA bilaterally. Absent: respiratory distress, rhonchi, wheezes - Routine Cardiovascular Exam Present: RRR, S1, S2. Absent: murmur - Routine Abdominal Exam Present: soft, normoactive bowel sounds - Routine Skin Exam Absent: cyanosis, erythema <Navdeep Skelton - Last Filed: 04/02/18 11:21> Vital signs: Vital Signs 04/01/18 19:42 04/01/18 20:00 04/02/18 00:00 Temperature 98.7 F 98.7 F Pulse Rate 43 L 44 L Respiratory Rate 21 12 Blood Pressure 150/77 H 136/69 Pulse Oximetry 99 96 98 04/02/18 04:00 04/02/18 08:00 04/02/18 08:52 Temperature 98.8 F 98.7 F Pulse Rate 61 50 L Respiratory Rate 20 16 Blood Pressure 147/84 H Pulse Oximetry 100 99 99 04/02/18 09:00 04/02/18 12:00 04/02/18 16:00 Temperature 98.6 F Pulse Rate 50 L 43 L Respiratory Rate 14 16 Blood Pressure 135/78 Pulse Oximetry 99 Intake & Output 04/01/18 04/02/18 04/02/18 18:59 06:59 18:59 Intake Total 490 / 490 105 / 105 400 / 400 Balance 490 / 490 105 / 105 400 / 400 Intake: IV 310 / 310 105 / 105 400 / 400 NS Inj 1,000 ML @ 100 mls/hr IV 300 / 300 .CONT .Q10H GRISEL Rx#:[id number] Ofirmev Inj 1,000 mg In 100 ml 100 / 100 100 / 100 @ 400 mls/hr IV.SIG Q6H PRN Rx# :[id number] Keppra Inj 500 MG In NS Inj 100 210 / 210 105 / 105 ML @ 400 mls/hr IV.SIG Q12H GRISEL Rx#:[id number] Oral 180 / 180 Other: # Voids 7 Date of Last Bowel Movement 03/30/18 03/30/18 03/30/18 <Clifton Wagner - Last Filed: 04/02/18 17:04> Assessment and Plan - Assessment (1) Intracranial hemorrhage Code(s): I62.9 - Nontraumatic intracranial hemorrhage, unspecified Status: Acute (2) Traumatic brain injury with brief (less than 1 hour) loss of consciousness Code(s): S06.9X9A - Unspecified intracranial injury with loss of consciousness of unspecified duration, initial encounter Status: Acute - Plan 57-year-old gentleman with a traumatic brain injury 03/29 involving bifrontal lobe contusions in left temporal lobe hemorrhage along with subarachnoid hemorrhage and frontal nondisplaced skull fracture after a fall from a ladder. Follow up CT 03/30 will mild blossoming of frontal contusions. Follow up CT showing evolution. P: Continue with anti epileptic medication. Keppra for one week. Continue to ambulate with assistance. Neuro checks Discussed with family and all of their questions answered. Discussed with nursing staff. <Navdeep Skelton - Last Filed: 04/02/18 11:21> - Assessment (1) Traumatic brain injury with brief (less than 1 hour) loss of consciousness Code(s): S06.9X9A - Unspecified intracranial injury with loss of consciousness of unspecified duration, initial encounter Status: Acute (2) Intracranial hemorrhage Code(s): I62.9 - Nontraumatic intracranial hemorrhage, unspecified Status: Acute - Attending Attestation The exam, history, and the medical decision-making described in the above note were completed with the assistance of the mid-level provider. I reviewed and agree with the findings presented. I attest that I had a [id number] encounter with the patient on the same day, and personally performed and documented my assessment and findings in the medical record. <Clifton Wagner - Last Filed: 04/02/18 17:04>
[2018-04-02] MEDS: QUEtiapine 25 MG Tablet PO SCH (20:23)
[2018-04-02] MEDS: levETIRAcetam 500 MG Tablet PO SCH (20:23)
[2018-04-03 04:29] LABS: Anion Gap 11 meq/L (5-15); Blood Urea Nitrogen 12 mg/dL (7-18); Calcium 8.5 mg/dL (8.5-10.1); Chloride 98 meq/L (98-107); Glomerular Filtration Rate Greater Than 89 mL/min (>89); Glucose,Random 101 mg/dL (74-106); Potassium 3.6 meq/L (3.5-5.1); Sodium 138 meq/L (136-145)
[2018-04-03 05:39] VITALS: PULSE 46
[2018-04-03 07:20] VITALS: O2SAT 99
--- NOTE | 2018-04-03 08:17 | P.PNNPSY ---
- Behavior Intact: Impulsive/agitated - Cognitive Mild: Cognitive, Attention/concentration, Confused/orientation, Insight/ awareness, Judgment/problem solving, Memory - Psychosocial Intact: Psychosocial, Family/other adjustment, Realistic expectation - Progress Notes/Response to Treatment Contents of Sessions: Adjustment, Level of consciousness Time with Patient: 30 minutes Premorbid Psychological Status: Premorbid Cognitive, Emotional and Behavioral Status: Tenuous. The patient has high school years of education but is from [place], and speaks only [place]. The patient has no known prior psychiatric difficulties, as described above. Substance abuse history is unknown. Behavioral Reactions of Patient and Family/Support System: Stable. The patients family is experiencing ongoing issues of adjustment given the nature of the injury, and this aspect of recovery will require ongoing monitoring. Emotional/Behavioral Status of Patient and Family/Support System: Stable. Pertinent issues, if appropriate to this patients clinical care, are described in detail above. Maximizing Acute Care Outcome: It is recommended that the patient be monitored for emergent behavioral impulsivity as the medical condition evolves. This patients neuropathological challenges may limit rehabilitation potential going forward, and these challenges will require specialized therapeutic skills to maximize outcome. Additionally, the patients family is experiencing ongoing issues of adjustment given the traumatic nature of the injury, and they may benefit from ongoing psychological assistance. At this point in the recovery process, the patient retains decision making cognitive capacity as the patient is able to understand a situation and its likely consequences, and he has improved ability to manipulate information rationally. Cognitive capacity will be assessed throughout the recovery process. Anticipated Problems: Ongoing areas of concern will include behavioral impulsivity, lack of insight and judgment, which is expected to improve with time and treatment. Treatment Plan: This clinician will continue to follow with you throughout the course of this patients critical care treatment, and I will be available to meet with the patients family/support system to facilitate their understanding and the ongoing care of their family member. The goals of neuropsychological intervention shall be both educational and supportive to the family/support system as is deemed clinically appropriate. Rancho [place] Amigos COG Scale: Level VII Disinhibition Score: 14.00 Aggression Score: 14.00 Lability Score: 14.00 Agitated Behavior Total Score: 14 Impression: 57 year old male s/p complicated mild TBI 2T fall on 03/29/2018. Progress Note Narrative: PTD 5. The patient is stable, ready to discharge home. No issues of agitation/ restlessness with ABS = 14 (14,14,14). He is Rancho VII. Consider continuing Seroquel and VPA following discharge, and I can follow up with patient on outpatient. I will follow. - Diagnosis (1) Mild major neurocognitive disorder as late effect of traumatic brain injury without behavioral disturbance Status: Acute
[2018-04-03] MEDS: levETIRAcetam 500 MG Tablet PO SCH (08:49)
[2018-04-03] MEDS: Sodium Chloride 1 GM Tablet PO SCH (08:49)
[2018-04-03] MEDS: Enoxaparin Inj 40 MG/0.4 ML Syringe SQ SCH (08:49)
--- NOTE | 2018-04-03 09:02 | P.PNNS ---
Subjective Interval history: Pt awake and alert. Complains of frontal headaches and headaches on top of head. Pain in bilateral buttocks and posterior thighs improving but present. <Navdeep Skelton - Last Filed: 04/03/18 08:57> Physical Exam Vital signs: Vital Signs 04/02/18 09:00 04/02/18 12:00 04/02/18 16:00 Temperature 98.6 F 97.9 F Pulse Rate 50 L 43 L 47 L Respiratory Rate 14 15 Blood Pressure 135/78 146/76 H Pulse Oximetry 99 98 04/02/18 20:00 04/03/18 00:00 04/03/18 04:00 Temperature 98.5 F 98.9 F 99.4 F Pulse Rate 48 L 46 L 46 L Respiratory Rate 18 18 16 Blood Pressure 142/80 H 151/86 H 144/79 H Pulse Oximetry 97 97 04/03/18 07:20 Temperature Pulse Rate Respiratory Rate Blood Pressure Pulse Oximetry 99 Intake & Output 04/02/18 04/03/18 04/03/18 18:59 06:59 18:59 Intake Total 760 / 760 380 / 380 Balance 760 / 760 380 / 380 Weight 78.9 kg Intake: IV 400 / 400 180 / 180 NS Inj 1,000 ML @ 100 mls/hr IV 300 / 300 .CONT .Q10H GRISEL Rx#:[id number] Ofirmev Inj 1,000 mg In 100 ml 100 / 100 180 / 180 @ 400 mls/hr IV.SIG Q6H PRN Rx# :[id number] Oral 360 / 360 200 / 200 Other: # Voids 5 0 Date of Last Bowel Movement 03/30/18 03/30/18 - Constitutional no acute distress, average body habitus, cooperative - Routine HEENT Exam Head: Present: normocephalic, atraumatic Eye: Present: PERRL (Pupils 3mm bilaterally reactive bilaterally.) ENT: Present: oropharynx clear - Routine Respiratory Exam Present: CTA bilaterally. Absent: rhonchi, wheezes - Routine Cardiovascular Exam Present: RRR, S1, S2. Absent: murmur - Routine Abdominal Exam Present: soft, normoactive bowel sounds. Absent: firm - Routine Skin Exam Absent: cyanosis, erythema - Routine Neurological Exam Present: alert, moving all extremities. Absent: motor deficit, altered mental status - Routine Psychiatric Exam Present: normal affect, cooperative <Piazza,Navdeep - Last Filed: 04/03/18 08:57> Vital signs: Vital Signs 04/02/18 16:00 04/02/18 20:00 04/03/18 00:00 Temperature 97.9 F 98.5 F 98.9 F Pulse Rate 47 L 48 L 46 L Respiratory Rate 15 18 18 Blood Pressure 146/76 H 142/80 H 151/86 H Pulse Oximetry 98 97 97 04/03/18 04:00 04/03/18 07:20 04/03/18 08:00 Temperature 99.4 F 97.9 F Pulse Rate 46 L 46 L Respiratory Rate 16 15 Blood Pressure 144/79 H 122/87 Pulse Oximetry 99 99 04/03/18 09:00 Temperature Pulse Rate 46 L Respiratory Rate Blood Pressure Pulse Oximetry Intake & Output 04/02/18 04/03/18 04/03/18 18:59 06:59 18:59 Intake Total 760 / 760 380 / 380 Balance 760 / 760 380 / 380 Weight 78.9 kg Intake: IV 400 / 400 180 / 180 NS Inj 1,000 ML @ 100 mls/hr IV 300 / 300 .CONT .Q10H GRISEL Rx#:[id number] Ofirmev Inj 1,000 mg In 100 ml 100 / 100 180 / 180 @ 400 mls/hr IV.SIG Q6H PRN Rx# :[id number] Oral 360 / 360 200 / 200 Other: # Voids 5 0 Date of Last Bowel Movement 03/30/18 03/30/18 <Clifton Wagner - Last Filed: 04/03/18 12:02> Assessment and Plan - Assessment (1) Intracranial hemorrhage Code(s): I62.9 - Nontraumatic intracranial hemorrhage, unspecified Status: Acute (2) Traumatic brain injury with brief (less than 1 hour) loss of consciousness Code(s): S06.9X9A - Unspecified intracranial injury with loss of consciousness of unspecified duration, initial encounter Status: Acute - Plan 57-year-old gentleman with a traumatic brain injury 03/29 involving bifrontal lobe contusions in left temporal lobe hemorrhage along with subarachnoid hemorrhage and frontal nondisplaced skull fracture after a fall from a ladder. Follow up CT 03/30 will mild blossoming of frontal contusions. Follow up CT showing evolution. P: Continue with anti epileptic medication. Keppra for one week. Continue to ambulate with assistance. Neuro checks Discussed with nursing staff. Will mobilize pt more today and if doing well consider discharge later today or tomorrow. <Navdeep Skelton - Last Filed: 04/03/18 08:57> - Assessment (1) Traumatic brain injury with brief (less than 1 hour) loss of consciousness Code(s): S06.9X9A - Unspecified intracranial injury with loss of consciousness of unspecified duration, initial encounter Status: Acute (2) Intracranial hemorrhage Code(s): I62.9 - Nontraumatic intracranial hemorrhage, unspecified Status: Acute - Attending Attestation The exam, history, and the medical decision-making described in the above note were completed with the assistance of the mid-level provider. I reviewed and agree with the findings presented. I attest that I had a [id number] encounter with the patient on the same day, and personally performed and documented my assessment and findings in the medical record. <Clifton Wagner - Last Filed: 04/03/18 12:02>
[2018-04-03 09:56] VITALS: BP 122/87; RESP 15; TEMP 97.9
--- NOTE | 2018-04-03 10:49 | P.PNCC ---
Subjective Brief History: 57-year-old male who fell about 6 foot ladder and landed on his back hit his head. There was loss of consciousness and by the time EMS came patient was awake and alert complaining about headache. The patient was brought at the regular ER underwent workup and was noted on CT scan to have the above noted findings. Neurologically the patient is fully intact. He is awake, alert and oriented. Cranial nerves 2-12 are normal. Motor is fully intact and sensory is intact. Reveals a right frontal skull fracture and very extensive bilateral frontal and right temporoparietal intraparenchymal bleeding and subarachnoid and subdural bleed on the left. This is fairly extensive on the CT scan and patient is way more alert and oriented than the CT scan would indicate. At this point the patient will be admitted to the ICU per clinical indices. I have discussed the care with family and also spoken to family member who is a neurosurgeon in [place] and worked also in [facility] who completely understood the situation. This patient will likely get worse before he gets better and there is significant chance that swelling will increase to the point that patients neurologic status will deteriorate and he will require ventilation 24 Hour Review/Hospital Course: 03/[address] stable c/o nausea and headache overall stable 03/31 awake alert Tc Coma Score of 15 Moving all extremities Complains of mainly headache Tolerating regular diet CT essentially stable Patient has been out of bed 04/01 According to RN report patient was agitated last night and impulsive He received Ativan ordered by the neurosurgeon He is sleepy in the morning however arousable patient is [place]ic-speaking only according to family though he is alert and oriented The CT shows essentially stable injury pattern Sodium was 140 Patient is acting as expected for a frontal lobe injury-we will start him on valproic acid Seroquel for the night Haldol as needed patient is bradycardic so that will hold clonidine or propranolol Family was updated at the bedside 04/02/18 Late entry A&Ox3 Still reporting headache Ambulating to restroom with minimal assist Transfer to floor today Objective Vital Signs / I&O: Vital Signs 04/02/18 12:00 04/02/18 16:00 04/02/18 20:00 Temperature 98.6 F 97.9 F 98.5 F Pulse Rate 43 L 47 L 48 L Respiratory Rate 14 15 18 Blood Pressure 135/78 146/76 H 142/80 H Pulse Oximetry 99 98 97 04/03/18 00:00 04/03/18 04:00 04/03/18 07:20 Temperature 98.9 F 99.4 F Pulse Rate 46 L 46 L Respiratory Rate 18 16 Blood Pressure 151/86 H 144/79 H Pulse Oximetry 97 99 04/03/18 08:00 04/03/18 09:00 Temperature 97.9 F Pulse Rate 46 L 46 L Respiratory Rate 15 Blood Pressure 122/87 Pulse Oximetry 99 Intake & Output 04/02/18 04/03/18 04/03/18 18:59 06:59 18:59 Intake Total 760 / 760 380 / 380 Balance 760 / 760 380 / 380 Weight 78.9 kg Intake: IV 400 / 400 180 / 180 NS Inj 1,000 ML @ 100 mls/hr IV 300 / 300 .CONT .Q10H GRISEL Rx#:[id number] Ofirmev Inj 1,000 mg In 100 ml 100 / 100 180 / 180 @ 400 mls/hr IV.SIG Q6H PRN Rx# :[id number] Oral 360 / 360 200 / 200 Other: # Voids 5 0 Date of Last Bowel Movement 03/30/18 03/30/18 Result Diagrams: 04/01/18 03:32 04/03/18 02:46 Disinhibition Score: 14.00 Aggression Score: 14.00 Lability Score: 14.00 Agitated Behavior Total Score: 14 Objective Remarks: GENERAL: 57-year-old well-nourished, well developed male lying in bed in no acute distress. SKIN: Warm and dry. HEAD: Normocephalic. EYES: Pupils equal and round. No scleral icterus. ENT: No nasal bleeding or discharge. Mucous membranes pink and moist. NECK: Trachea midline. No JVD. CARDIOVASCULAR: Regular rate and rhythm. RESPIRATORY: No accessory muscle use. Lungs clear to auscultation. Breath sounds equal bilaterally. GASTROINTESTINAL: Abdomen soft, non-tender, nondistended. + BS. MUSCULOSKELETAL: Extremities without cyanosis, or edema. MAEW, + perfused NEUROLOGICAL: Awake and alert. Normal speech. Assessment and Plan Plan: Bifrontal contusions, Extensive SAH, SDH, Frontal bone fx Neurosurgery consulted Neuro checks Keppra x 7 days OOB-PT/OT ordered Seroquel 50mg HS VPA 250mg BID Plan of care discussed with patient and LAUNDRY SORTER at bedside. Collaborating Trauma surgeon agrees with plan. Case management consulted to assist with discharge planning. Plan to DC home in 1-2 days.
--- NOTE | 2018-04-03 10:52 | P.DS ---
Date of admission: 03/29/18 12:56 Primary care physician: No Primary Care Physician Brief History from admission: S/P Fall DS: Diagnosis - Discharge Diagnosis (1) Skull fracture with cerebral contusion Status: Acute (2) Intracranial hemorrhage Status: Acute (3) Mild major neurocognitive disorder as late effect of traumatic brain injury without behavioral disturbance Status: Acute DS: Medications - Discharge Medications Prescriptions: acetaminophen [Tylenol] 650 mg PO Q4-6H PRN #30 cap PRN Reason: Headache levetiracetam [Keppra] 500 mg PO Q12H 3 Days #6 tab quetiapine 50 mg PO HS 7 Days #14 tab sumatriptan succinate [Imitrex] 25 mg PO Q2-4H PRN #30 tab PRN Reason: Headache valproic acid [Depakene] 250 mg PO BID 7 Days #14 cap DS: Summary Hospital Course: 03/[address] stable c/o nausea and headache overall stable 03/31 awake alert [place] Coma Score of 15 Moving all extremities Complains of mainly headache Tolerating regular diet CT essentially stable Patient has been out of bed 04/01 According to RN report patient was agitated last night and impulsive He received Ativan ordered by the neurosurgeon He is sleepy in the morning however arousable patient is [place]-speaking only according to family though he is alert and oriented The CT shows essentially stable injury pattern Sodium was 140 Patient is acting as expected for a frontal lobe injury-we will start him on valproic acid Seroquel for the night Haldol as needed patient is bradycardic so that will hold clonidine or propranolol Family was updated at the bedside 04/02/18 A&Ox3 Still reporting headache Ambulating to restroom with minimal assist Transfer to floor today 04/03 Less impulsive Still with NORTH- Imitrex ordered Clear to DC home Bifrontal contusions, Extensive SAH, SDH, Frontal bone fx Neurosurgery consulted, F/U outpatient Neuro checks Keppra x 7 days Neuropsychology consulted, F/U outpatient OOB-PT/OT ordered Seroquel 50mg HS VPA 250mg BID F/U with PCP in 1 week Plan of care discussed with patient and HOME SERVICE DIRECTOR at bedside. Collaborating Trauma surgeon agrees with plan. Case management consulted to assist with discharge planning. Patient is clear from trauma surgery standpoint to safely discharge home. Outpatient PT ordered. - Time Spent with Patient Total time spent providing and/or coordinating discharge services: Greater than 30 minutes - Quality: VTE Deep Vein Thrombosis/Pulmonary Embolism Present on Admission: No Exam Vital signs: Vital Signs 04/02/18 12:00 04/02/18 16:00 04/02/18 20:00 Temperature 98.6 F 97.9 F 98.5 F Pulse Rate 43 L 47 L 48 L Respiratory Rate 14 15 18 Blood Pressure 135/78 146/76 H 142/80 H Pulse Oximetry 99 98 97 04/03/18 00:00 04/03/18 04:00 04/03/18 07:20 Temperature 98.9 F 99.4 F Pulse Rate 46 L 46 L Respiratory Rate 18 16 Blood Pressure 151/86 H 144/79 H Pulse Oximetry 97 99 04/03/18 08:00 04/03/18 09:00 Temperature 97.9 F Pulse Rate 46 L 46 L Respiratory Rate 15 Blood Pressure 122/87 Pulse Oximetry 99 Intake & Output 04/02/18 04/03/18 04/03/18 18:59 06:59 18:59 Intake Total 760 / 760 380 / 380 Balance 760 / 760 380 / 380 Weight 78.9 kg Intake: IV 400 / 400 180 / 180 NS Inj 1,000 ML @ 100 mls/hr IV 300 / 300 .CONT .Q10H GRISEL Rx#:[id number] Ofirmev Inj 1,000 mg In 100 ml 100 / 100 180 / 180 @ 400 mls/hr IV.SIG Q6H PRN Rx# :[id number] Oral 360 / 360 200 / 200 Other: # Voids 5 0 Date of Last Bowel Movement 03/30/18 03/30/18 Narrative: GENERAL: 57-year-old well-nourished, well developed male lying in bed in no acute distress. SKIN: Warm and dry. HEAD: Normocephalic. EYES: Pupils equal and round. No scleral icterus. ENT: No nasal bleeding or discharge. Mucous membranes pink and moist. NECK: Trachea midline. No JVD. CARDIOVASCULAR: Regular rate and rhythm. RESPIRATORY: No accessory muscle use. Lungs clear to auscultation. Breath sounds equal bilaterally. GASTROINTESTINAL: Abdomen soft, non-tender, nondistended. + BS. MUSCULOSKELETAL: Extremities without cyanosis, or edema. MAEW, + perfused NEUROLOGICAL: Awake and alert. Normal speech. Results Procedures completed during hospitalization: . Labs on day of discharge: Labs from last 24 hours 04/03/18 02:46 Sodium 138 Potassium 3.6 Chloride 98 D Carbon Dioxide 29.0 Anion Gap 11 BUN 12 Creatinine 0.80 Estimated GFR Greater than 89 Random Glucose 101 Calcium 8.5 - Impressions ITS Impressions Cervical Spine CT 03/29/18 11:42 CONCLUSION: 1. No fracture or dislocation. 2. Mild degenerative disc disease. Neck CTA 03/29/18 11:42 CONCLUSION: Negative CTA Carotid. Head CTA 03/29/18 13:11 CONCLUSION: No acute [place] vascular abnormalities. Head CT 04/01/18 00:00 CONCLUSION: 1. Intracranial hemorrhage and bifrontal hemorrhagic contusions are again seen with a nondisplaced skull fracture. . Discharge Plan - Discharge Disposition Patient Disposition: /[facility] Service - Discharge Condition Condition: Stable - Discharge Order Discharge Orders: Discharge Order (Routine); Ordered 04/03/18 Ordered By: Rinku Garcia - Physicians Team Primary Care Provider: Primary Care Linai,Tiffany Attending Provider: Vincent Hurt Other Providers: Clifton Wagner MD ; Uziel Zuniga MD ; Francisco Arevalo MD ; Systems,[employer] ; Avni Brambila MD ; Leatha Blank ARNP ; Dakota Garvin MD ; Rachel Nunes MD ; Rinku Garcia ARNP ; Vincent Hurt MD ; Gael Nolen, PhD
== END 2018-04-03 11:30 | disposition home or self-care (01) ==
LOC: NEPC 11:29 → NEDA 12:56 → N03 15:41
PROVIDERS: ADMIT Surgery; ATTEND Surgery